=== PATIENT | male | born 1955 | race Caucasian/White ===

== ENCOUNTER → 2021-11-11 | Outpatient (CLI) | payer OTHER ==
--- NOTE | 2021-11-11 16:24 | CTL ---
EXAMINATION TYPE: CT Low Dose Lung DATE OF EXAM ORDERED: 11/11/2021 HISTORY: Personal tobacco use. Lung cancer screening CT DLP: 52.[address] CTDI: 1.3 mGy Automated exposure control for dose reduction was used. SCREENING VISIT: Initial COMPARISON: None TECHNIQUE: Low dose computed tomography scan was performed through the chest at 1 mm thick sections a nd reconstructed images in the coronal plane at [address] DIAGNOSTIC QUALITY: Satisfactory FINDINGS: LUNG NODULES: Present, detailed below: 1. There is a pleural-based 1.0 cm nodule in the lateral right costophrenic angle. Series 4 image 342 . 2. There is a 0.7 cm nodule within the periphery of the left lower lung field. Series 4 image 291. 3. There is a faint 0.5 cm nodule in the anterior left lung base, series 4 image 287. 4. There is a 0.7 cm peripheral nodule in the right mid lung. Series 4 image 217. Punctate nodular de nsities in the posterior medial right lung at the same level. 5. There is a left mid lung peripheral nodule measuring 0.8 cm. Series 4 image 217. 6. There is a 0.9 cm nodule within the anterior right mid lung. Series 4 image 207. 7. There is a 0.3 cm nodule posterior right lung. Series 4 image 190. 8. There is ar 0.4 cm nodule in the periphery of the right lateral lung. Series 4 image 24. LUNGS: COPD: Severity: Severe Fibrosis: Severity: Moderate Lymph nodes: No enlarged Other findings: None RIGHT PLEURAL SPACE: Effusion: None Calcification: None Thickening: None Pneumothorax: None LEFT PLEURAL SPACE: Effusion: None Calcification: None Thickening: None Pneumothorax: None HEART: Heart Size: Normal Coronary calcification: None Pericardial effusion: None OTHER FINDINGS: Upper abdomen: PEG tube is present. Bony thorax: Normal Supraclavicular region: Normal Other: Ascending thoracic aorta at the level the main pulmonary artery measures 3.3 cm. The main pul monary artery at the bifurcation measures 2.8 cm. IMPRESSION: 1. Multiple bilateral lung nodules. Additional workup with PET CT is recommended. Primary metastatic disease are not excluded at this time. 2. Advanced COPD. 3. Pulmonary fibrosis at the lung bases FOLLOW UP CT CHEST RECOMMENDATION: Follow-up with PET/CT CT LUNG RAD: Lung-Rad 4B Suspicious
== END | disposition home or self-care (01) ==
LOC: RADCTMAIN 12:40
PROVIDERS: ATTEND Family Medicine
DX: Z12.2 Encounter for screening for malignant neoplasm of respiratory organs (principal); R91.8 Other nonspecific abnormal finding of lung field; Z87.891 Personal history of nicotine dependence
CPT/HCPCS: 71271

== ENCOUNTER → 2021-12-04 | Outpatient (CLI) | payer OTHER ==
--- NOTE | 2021-12-06 23:23 | PE ---
EXAMINATION TYPE: PET CT fusion skull to thigh DATE OF EXAM: 12/04/2021 CLINICAL INDICATION:Male, 66 years old with history of R91.1 SOLITARY PULMONARY NODULE; TECHNIQUE: Following the intravenous administration of 11.8 mCi of F-18 FDG, whole body images are performed from the skull base to the midthigh. Images are reviewed on the computer in the coronal, a xial, and sagittal planes. Reconstructed rotating images are created on independent workstation and reviewed on the computer. A non-contrast CT is performed in conjunction with the PET scan. Glucose level 100 mg/dL COMPARISON: CT 11/11/2021. PET/CT None, FINDINGS: Mediastinal SUV mean is 1.3. Hepatic parenchyma SUV mean is 2.3. SKULL BASE AND NECK: Mild asymmetric uptake in the left base of the tongue/oropharynx max SUV 2.6 and its tip of the tongue max SUV 5.4. CHEST, MEDIASTINUM, AND HILAR REGION: No suspicious FDG activity. Pulmonary nodules without increased FDG activity at this time. All the nodules demonstrate FDG activity below background levels. Some of the nodules are subcentimeter and may be below the sensitivity of PET/CT. ABDOMEN AND PELVIS: No suspicious FDG activity. OSSEOUS STRUCTURES: No suspicious FDG activity. Facet joint arthropathy changes with FDG activity in the facet joints of the cervical spine bilaterally OTHER CT: Atherosclerosis of the arterial vasculature including the carotid bifurcations and coronary arteries is present. PEG tube is in appropriate position bladder is distended. The gallbladder surgi bárbara absent. IMPRESSION: 1. Scattered pulmonary nodules of which the largest do not demonstrate increased FDG activity above back on levels. Smaller subcentimeter nodules are below the sensitivity for PET/CT. Consider follow-u p CT chest in 3-6 months for stability 2. Mild asymmetric FDG activity within the left base of the tongue/oropharynx and the tip of the ton noah. Consider direct visualization.
== END | disposition home or self-care (01) ==
LOC: RADPETMAIN 12:14
DX: R91.8 Other nonspecific abnormal finding of lung field (principal); K14.8 Other diseases of tongue
CPT/HCPCS: 78815; A9552

== ENCOUNTER 2022-03-25 12:37 | Emergency (ER) | payer OTHER ==
[2022-03-25 14:20] VITALS: RESP 18
--- NOTE | 2022-03-25 14:45 | ED ---
General Adult HPI <Richard Johnson - Last Filed: 03/25/22 14:56> - General Source: patient, RN notes reviewed Mode of arrival: ambulatory Limitations: no limitations <Marco Smallwood - Last Filed: 03/25/22 15:20> - General Chief complaint: Recheck/Abnormal Lab/Rx Stated complaint: feeding tube replacement Time Seen by Provider: 03/25/22 13:21 - History of Present Illness Initial comments: 66 show male presents emergency Department chief complaint of PEG tube falling out. Patient states it fell out pressure 4-5 hours ago. Patient states that he uses it for feedings. Patient denies any pain he states she's unsure how it fell out. Patient upper saw complaints. (Marco Smallwood) - Related Data Allergies Allergy/AdvReac Type Severity Reaction Status Date / Time No Known Allergies Allergy Verified 03/25/22 12:44 Review of Systems ROS Other: All systems not noted in ROS Statement are negative. <Richard Johnson - Last Filed: 03/25/22 14:56> ROS Other: All systems not noted in ROS Statement are negative. <Marco Smallwood - Last Filed: 03/25/22 15:20> ROS Statement: Those systems with pertinent positive or pertinent negative responses have been documented in the HPI. Past Medical History Additional Past Medical History / Comment(s): aortic aneurysm, chest pain, coper hand d,constipation, dysphagia, gastrostomy malfunction , high lipds, epilepsy, Pulmonary fibrosis. History of Any Multi-Drug Resistant Organisms: None Reported Additional Past Surgical History / Comment(s): placement of peg tube. Past Psychological History: Depression Smoking Status: Never smoker Past Alcohol Use History: None Reported Past Drug Use History: None Reported <Marco Smallwood - Last Filed: 03/25/22 15:20> General Exam Limitations: no limitations General appearance: alert, in no apparent distress Head exam: Present: atraumatic, normocephalic, normal inspection Respiratory exam: Present: normal lung sounds bilaterally. Absent: respiratory distress, wheezes, rales, rhonchi, stridor Cardiovascular Exam: Present: regular rate, normal rhythm, normal heart sounds. Absent: systolic murmur, diastolic murmur, rubs, gallop, clicks GI/Abdominal exam: Present: soft, normal bowel sounds. Absent: distended, tenderness, guarding, rebound, rigid <Marco Smallwood - Last Filed: 03/25/22 15:20> Course Vital Signs 03/25/22 03/25/22 12:39 14:16 Temperature 96.9 F L Pulse Rate 78 70 Respiratory 20 18 Rate Blood Pressure 111/73 O2 Sat by Pulse 97 96 Oximetry Procedures - Feeding Tube Replacement Reason for Replacement: fell out Initial Tube Inserted: greater than 2 weeks (Proximally 4 hours prior to arrival) Type of Tube: gastrostomy Use of Tube: medications and feeding Insertion Site Prior to Procedure: clean Tube Used for Reinsertion: other (16-Algerian PEG tube) Anesthesia Used: Lidocaine 1% (Local field block) Amount of Anesthesia Used (mls): 4 Used for Assist in Placement: hemostat Verification of Placement: auscultation, KUB Tube Secured by: G-tube attachment device Patient Tolerated Procedure: well <Richard Johnson - Last Filed: 03/25/22 14:56> - Feeding Tube Replacement Tube Used for Reinsertion: other <Marco Smallwood - Last Filed: 03/25/22 15:20> Medical Decision Making <Marco Smallwood - Last Filed: 03/25/22 15:20> - Medical Decision Making Was pt. sent in by a medical professional or institution ([facility], [employer], urgent care, hospital, or fpc...) When possible be specific @ -No Did you speak to anyone other than the patient for history (EMS, parent, family, police, friend...)? What history was obtained from this source @ -No Did you review nursing and triage notes (agree or disagree)? Why? @ -I reviewed and agree with nursing and triage notes Were old charts reviewed (outside hosp., previous admission, EMS record, old EKG, old radiological studies, urgent care reports/EKG's, fpc records)? Report findings @ -No old charts were reviewed Differential Diagnosis (chest pain, altered mental status, abdominal pain women, abdominal pain men, vaginal bleeding, weakness, fever, dyspnea, syncope, headache, dizziness, GI bleed, back pain, seizure, CVA, palpatations, mental health)? @ -PEG tube complication EKG interpreted by me (3pts min.). @ -None X-rays interpreted by me (1pt min.). @ -xr KUB with dye shows appropriate placement CT interpreted by me (1pt min.). @ -None done U/S interpreted by me (1pt. min.). @ -None done What testing was considered but not performed or refused? (CT, X-rays, U/S, labs)? Why? @ -None What meds were considered but not given or refused? Why? @ -None Did you discuss the management of the patient with other professionals (professionals i.e. DrBubba, PA, [employer], lab, RT, psych nurse, social work specialist, bakery assistant, teacher, police commanding officer, case filler)? Give summary @ -No Was smoking cessation discussed for >3mins.? @ -No Was critical care preformed (if so, how long)? @ -No Were there social determinants of health that impacted care today? How? (Homelessness, low income, unemployed, alcoholism, drug addiction, transportation, low edu. Level, literacy, decrease access to med. care, prison, rehab)? @ -No Was there de-escalation of care discussed even if they declined (Discuss DNR or withdrawal of care, Hospice)? DNR status @ -No What co-morbidities impacted this encounter? (DM, HTN, Smoking, COPD, CAD, Cancer, CVA, ARF, Chemo, Hep., AIDS, mental health diagnosis, sleep apnea, morbid obesity)? @ -None Was patient admitted / discharged? Hospital course, mention meds given and route, prescriptions, significant lab abnormalities, going to OR and other pertinent info. @ -hospital course Undiagnosed new problem with uncertain prognosis? @ -No Drug Therapy requiring intensive monitoring for toxicity (Heparin, Nitro, Insulin, Cardizem)? @ -No Were any procedures done? @ -yes see procedural note Diagnosis/symptom? @ -PEG tube complication Acute, or Chronic, or Acute on Chronic? @ -Acute Uncomplicated (without systemic symptoms) or Complicated (systemic symptoms)? @ -Uncomplicated Side effects of treatment? @ -No Exacerbation, Progression, or Severe Exacerbation? @ -No Poses a threat to life or bodily function? How? (Chest pain, USA, MD, pneumonia, PE, COPD, DKA, ARF, appy, cholecystitis, CVA, Diverticulitis, Homicidal, Suicidal, threat to staff... and all critical care pts) @ -No (Marco Smallwood) Disposition <Richard Johnson - Last Filed: 03/25/22 14:56> Is patient prescribed a controlled substance at d/c from ED?: No Time of Disposition: 15:01 <Marco Smallwood - Last Filed: 03/25/22 15:20> Clinical Impression: PEG tube malfunction Disposition: HOME SELF-CARE Condition: Stable Instructions (If sedation given, give patient instructions): How to Use and Care for Your PEG Tube (ED), PEG Tube Insertion (DC) Additional Instructions: Please return to the Emergency Department if symptoms worsen or any other concerns. Referrals: Nonstaff,Physician [Primary Care Provider] - 1-2 days
--- NOTE | 2022-03-25 15:17 | XR ---
EXAMINATION TYPE: XR KUB DATE OF EXAM: 03/25/2022 Comparison: PET/CT 12/04/2021 Clinical History: 66-year-old male PEG tube placement Findings: Injection through the patient's PEG tube, 2 ounces of Isovue-370 was administered by the radiology te chnologist. There is satisfactory intraluminal opacification of the stomach. Nonobstructive bowel gas pattern. Cholecystectomy clips. Impression: Satisfactory injection and positioning of the PEG tube.
[2022-03-25 15:25] VITALS: BP 105/64; PULSE 76; TEMP 98
== END 2022-03-25 15:25 | disposition home or self-care (01) ==
LOC: EC 12:37
DX: K94.23 Gastrostomy malfunction (principal)
CPT/HCPCS: 74018; 43762; 99283; Q9967

== ENCOUNTER → 2022-04-14 | Outpatient (CLI) | payer OTHER ==
--- NOTE | 2022-04-14 10:32 | US ---
EXAMINATION TYPE: US duplex aorta DATE OF EXAM: 04/14/2022 COMPARISON: NONE CLINICAL HISTORY: I71.4 Abdominal aortic aneurysm, without rupture. Patient has feeding tube TECHNIQUE: Multiple sonographic images of the abdominal aorta are obtained. FINDINGS: EXAM MEASUREMENTS: Abdominal Aorta: Proximal: 2.2 x 1.9 cm Mid: 1.5 x 2.0 cm Distal: 1.4 x 1.6 cm Bifurcation: Right- 0.9 x 1.1 cm Left- 0.9 x 1.0 cm BREAKDOWN PERSON NOTES: No AAA visualized at time of scan, atherosclerotic changes seen IMPRESSION: No AAA visualized
== END | disposition home or self-care (01) ==
LOC: RADUSWWP 09:50
PROVIDERS: ATTEND Family Medicine
DX: I71.40 Abdominal aortic aneurysm, without rupture, unspecified (principal)
CPT/HCPCS: 93979

== ENCOUNTER 2022-11-16 10:55 | Day surgery (SDC) | payer OTHER ==
[~2022-11-16 10:55] MED LIST: LACTATED RINGERS 1,000 ML IV SCH; LIDOCAINE 1% (10MG/ML) FOR IV START INTRADERMA PRN
[2022-11-16 11:31] VITALS: TEMP 97.1
[2022-11-16 11:50] LABS: Glucose,Whole Blood 91 mg/dL (70-110)
[2022-11-16] MEDS ORDERED: PROPOFOL 10 MG/ML 20 ML VIAL IV ONE (12:19)
[2022-11-16] MEDS ORDERED: LIDOCAINE 2% INJ 20 MG/ML (2 ML VIAL) ONE (12:19)
--- NOTE | 2022-11-16 12:37 | P.PCN ---
Date of Procedure: 11/16/22 Procedure(s) Performed: BRIEF HISTORY: Patient is a 67-year-old, pleasant, white male scheduled for an upper endoscopy as a part of evaluation of epigastric pain and progressive weight loss for the last 2 years duration. He underwent an EGD with PEG tube placement in 2019.. PROCEDURE PERFORMED: Esophagogastroduodenoscopy with PEG tube replacement. PREOPERATIVE DIAGNOSIS: Epigastric pain and progressive weight loss. IV sedation per anesthesia. PROCEDURE: After informed consent was obtained, the patient was brought into the endoscopy unit. IV sedation was administered by Anesthesia under continuous monitoring. Initially the Olympus GIF-140 video endoscope was inserted into the mouth. Esophagus intubated without any difficulty. It was gradually advanced into the stomach and duodenum and carefully examined. The bulb and the second part of the duodenum appeared normal. The scope at this time was withdrawn to the stomach, adequately insufflated with air, and upon careful examination, mucosa of the antrum, body, cardia and the fundus appeared normal. The balloon from the previously placed PEG tube appears to have broken as the balloon was deflated. The scope was then withdrawn into the esophagus. The GE junction was located at 39 cm from the incisors. The esophagus appeared normal. There were no erosions or ulcerations seen . At this time because of PEG tube malfunction, I decided to replace the G-tube. The previously placed PEG tube was removed from the anterior abdominal wall without any difficulty. A guidewire was passed through the anterior abdominal wall which was held by the snare that was passed through the scope. The scope and the snare was gradually withdrawn. Very Yoruba PEG tube was passed over the guidewire and gently advanced into the mouth into the esophagus and stomach and pulled from anterior abdominal wall until the internal bumper was not too gastric wall. External bumper was placed a 2 cm natali. Repeat EGD was performed. Internal bumper appeared to be in good position. Patient tolerated the procedure well. IMPRESSION: 1. Successful be placed band of PEG tube as described above 2. Mild gastritis. RECOMMENDATIONS: The findings of this examination were discussed with the patient as well as his family... He was advised to increase the Jevity to 4 cans daily.
[2022-11-16 13:04] VITALS: PULSE 73; RESP 20
[2022-11-16 13:05] VITALS: BP 120/60
== END 2022-11-16 13:20 ==
LOC: ORWHC2ENDO 10:55
PROVIDERS: ATTEND Internal Medicine Gastroenterology
DX: R19.8 Other specified symptoms and signs involving the digestive system and abdomen (principal); J44.9 Chronic obstructive pulmonary disease, unspecified; Z79.811 Long term (current) use of aromatase inhibitors; Z79.899 Other long term (current) drug therapy
CPT/HCPCS: 43246; J2704; J2001; B4087

== ENCOUNTER → 2022-12-23 | Outpatient (CLI) | payer OTHER ==
--- NOTE | 2022-12-23 14:55 | CTL ---
EXAMINATION TYPE: CT Low Dose Lung DATE OF EXAM ORDERED: 12/23/2022 HISTORY: . Lung cancer screening CT DLP: 54.[address] CTDI: 1.2 mGy Automated exposure control for dose reduction was used. SCREENING VISIT: COMPARISON: 11/11/2021 TECHNIQUE: Low dose computed tomography scan was performed through the chest at 1 mm thick sections a nd reconstructed images in multiple planes at 1 mm and [address] DIAGNOSTIC QUALITY: Satisfactory FINDINGS: LUNG NODULES: Present, detailed below: 1. There is a pleural-based 1.0 cm nodule in the lateral right costophrenic angle. Series 4 image 342. 2. There is a 0.7 cm nodule within the periphery of the left lower lung field. Series 4 image 291. 3. There is a faint 0.5 cm nodule in the anterior left lung ba se, series 4 image 287. 4. There is a 0.7 cm peripheral nodule in the right mid lung. Series 4 image 217. Punctate nodular densities in the posterior medial right lung at the same level. 5. There is a l eft mid lung peripheral nodule measuring 0.8 cm. Series 4 image 217. 6. There is a 0.9 cm nodule with in the anterior right mid lung. Series 4 image 207. 7. There is a 0.3 cm nodule posterior right lung. Series 4 image 190. 8. There is ar 0.4 cm nodule in the periphery of the right lateral lung. Series 4 image 24. There is biapical pleural scarring. Diffuse advanced emphysematous changes. No diagnostic evidence of focal pneumonia. Multiple pulmonary nodules are again noted. There is a nodule measuring 8 mm in the right upper lobe anterior segment stable. Within the left lower lobe the largest nodule measures 1.2 cm increased in size from prior exam Multiple additional subpleural nodules are similar to the prior exam. Additional 9 mm nodule at the l eft lung base is retrospectively stable. Subpleural nodule measuring 1 cm right lower lobe near the costophrenic angle stable. Multiple additional sub-5 mm nodules least a couple of which appear to be calcified stable prior exam . There is honeycombing advanced pulmonary fibrosis at the lung bases. Heart size is normal. Trace of pericardial fluid. There is coronary artery calcification. Atheroscler otic changes of the aorta but no evidence of aneurysm. There is evidence of a PEG tube and previous cholecystectomy. Hypertrophic and degenerative changes o f the spine. There is no changes of bronchiectasis centrally and at the lung bases with the mucous plugging in the left lower lobe. Within the trachea and left main pulmonary artery there is a thin area of abnormal attenuation likely related to retained secretions.. IMPRESSION: 1. Advanced emphysematous changes with honeycombing at the lung bases. 2. There are numerous bilateral pulmonary nodules all appear to be stable except for a left lower lob e nodule now measuring 1.2 x 1.1 cm and previously measuring 1.1 x 0.7 cm. Recommend repeat PET scan. 3. Coronary artery calcifications. CT LUNG RAD AND CT CHEST RECOMMENDATION: Lung-Rad 4A Suspicious: Follow-up 3 month LDCT or PET/CT may be used when there is a > 8 mm solid component. S Modifier (other clinically significant findings): S
== END | disposition home or self-care (01) ==
LOC: RADCTMAIN 12:40
PROVIDERS: ATTEND Emergency Medicine
DX: Z12.2 Encounter for screening for malignant neoplasm of respiratory organs (principal); F17.210 Nicotine dependence, cigarettes, uncomplicated; J43.9 Emphysema, unspecified; R91.8 Other nonspecific abnormal finding of lung field; I25.10 Atherosclerotic heart disease of native coronary artery without angina pectoris
CPT/HCPCS: 71271

== ENCOUNTER → 2023-02-01 | Outpatient (CLI) | payer OTHER ==
--- NOTE | 2023-02-01 14:55 | XR ---
EXAMINATION TYPE: XR chest 2V DATE OF EXAM: 02/01/2023 12:49 PM CLINICAL INDICATION:Male, 67 years old with history of R14.0; [facility] COMPARISON: Chest radiographs from 02/01/2023, 12/23/2022 CT. TECHNIQUE: XR chest 2V Frontal and lateral views of the chest. FINDINGS: Lungs/Pleura: Prominent interstitial lung markings are seen scattered throughout the lungs with mckenzie ening of the diaphragm and increased lucency of the lung apices. Increased fibrotic change with inter stitial markings in lung bases. No evidence of focal consolidation, pneumothorax or pleural effusion. Pulmonary vascularity: Unremarkable. Heart/mediastinum: Cardiomediastinal silhouette is unremarkable. Musculoskeletal: No acute osseous pathology. IMPRESSION: 1. No acute cardiopulmonary disease process. 2. Severe COPD changes and these are fibrotic change..
--- NOTE | 2023-02-01 14:57 | XR ---
EXAMINATION TYPE: XR abdomen 2V DATE OF EXAM: 02/01/2023 12:49 PM CLINICAL INDICATION:Male, 67 years old with history of R14.0; COMPARISON: None. TECHNIQUE: Two views of the abdomen were obtained. FINDINGS: PEG tube in similar position. The bowel gas pattern is nonspecific without dilated loops of small or large bowel. There is no evidence for organomegaly or pneumoperitoneum. The osseous struct ures are intact. No abnormal calcifications are present. Fecal material and gas are demonstrated thr oughout the colon and rectum. IMPRESSION: Nonspecific bowel gas pattern without radiographic evidence for acute process.
== END | disposition home or self-care (01) ==
LOC: RADXRMAIN 12:19
PROVIDERS: ATTEND Nurse Practitioner
DX: J44.9 Chronic obstructive pulmonary disease, unspecified (principal); R14.0 Abdominal distension (gaseous); Z93.1 Gastrostomy status
CPT/HCPCS: 71046; 74019

== ENCOUNTER 2023-04-02 18:57 | Emergency (ER) | payer OTHER ==
[2023-04-02] MEDS ORDERED: MAGNESIUM SULFATE-D5W PMX 1 GM in DEXTROSE/WATER 1 100ML.BAG IVPB STA (19:15)
[2023-04-02] MEDS ORDERED: IPRATROPIUM-ALBUTEROL 3 ML NEB INHALATION STA (19:15)
[2023-04-02] MEDS ORDERED: SODIUM CHLORIDE 0.9% 1,000 ML IV STA (19:15)
[2023-04-02] MEDS ORDERED: methylPREDNISolone SOD SUCCI 125 MG/2 ML VIAL IV STA (19:15)
[2023-04-02 20:20] LABS: Basophils # (A) 0.1 k/uL (0-0.2); Basophils % (A) 1 %; Eosinophils # (A) 0.2 k/uL (0-0.7); Eosinophils % (A) 2 %; HCT 35.5 % (39.0-53.0); Lymphocytes # (A) 1.2 k/uL (1.0-4.8); Lymphocytes % (A) 10 %; MCH 31.8 pg (25.0-35.0); MCHC 33.8 g/dL (31.0-37.0); MCV 94.1 fL (80.0-100.0); Mean Platelet Volume 7.8; Monocytes # (A) 0.6 k/uL (0-1.0); Monocytes % (A) 5 %; Neutrophils # (A) 9.7 k/uL (1.3-7.7); Neutrophils % (A) 81 %; Platelet Count 202 k/uL (150-450); RBC 3.78 m/uL (4.30-5.90); RDW 12.4 % (11.5-15.5); WBC 11.9 k/uL (3.8-10.6)
[2023-04-02 20:30] LABS: ALT 12 U/L (4-49); AST 20 U/L (17-59); African American GFR (CKD) >90 (>60 ml/min/1.73 sqM); Albumin 4.2 g/dL (3.5-5.0); Alkaline Phosphatase 158 U/L (38-126); Anion Gap 9 mmol/L; Blood Urea Nitrogen 18 mg/dL (9-20); Calcium 9.1 mg/dL (8.4-10.2); Carbon Dioxide 28 mmol/L (22-30); Chloride 99 mmol/L (98-107); Glucose 108 mg/dL (74-99); Non-African American GFR(CKD) >90 (>60 ml/min/1.73 sqM); Potassium 4.3 mmol/L (3.5-5.1); Sodium 136 mmol/L (137-145); Total Bilirubin 0.4 mg/dL (0.2-1.3); Total Protein 8.1 g/dL (6.3-8.2)
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
--- NOTE | 2023-04-02 20:53 | XR ---
EXAMINATION TYPE: XR chest 2V DATE OF EXAM: 04/02/2023 COMPARISON: 02/01/2023 HISTORY: Shortness of breath TECHNIQUE: Frontal and lateral views of the chest are obtained. FINDINGS: Scattered senescent parenchymal changes noted. Hyperinflation compatible with COPD. Patchy density left lower lobe may reflect developing infiltrate. No evidence for atelectasis. Heart size is stable. Mediastinal structures are stable and grossly unremarkable. No evidence for hilar prominence. Degenerative changes dorsal spine. IMPRESSION: 1. Patchy density left lower lobe may reflect developing infiltrate.
[2023-04-02] MEDS ORDERED: cefTRIAXone IN SWFI 1,000 MG/10 ML SYRINGE IVP STA (21:35)
[2023-04-02] MEDS ORDERED: KETOROLAC 15 MG/ML 1 ML VIAL IVP STA (21:37)
[2023-04-02 23:11] VITALS: BP 106/70; PULSE 72; RESP 16; TEMP 98.1
== END 2023-04-02 23:04 | disposition home or self-care (01) ==
LOC: EC 18:57
DX: J44.0 Chronic obstructive pulmonary disease with (acute) lower respiratory infection (principal); J18.9 Pneumonia, unspecified organism; I45.10 Unspecified right bundle-branch block; Z79.899 Other long term (current) drug therapy; Z86.59 Personal history of other mental and behavioral disorders; Z20.822 Contact with and (suspected) exposure to COVID-19
CPT/HCPCS: 36415; 94640; 93005; 80053; 84484; 85025; 87636; 71046; 99285; 96365; 96375 ×3; J2930; J0696; J3475; J1885

== ENCOUNTER 2023-05-21 03:26 | Emergency (ER) | payer OTHER ==
[2023-05-21 04:02] VITALS: RESP 18; TEMP 97.8
[2023-05-21] MEDS: SODIUM CHLORIDE 0.9% 500 ML 500 ML IV STA (04:13)
[2023-05-21 04:23] LABS: Basophils # (A) 0.1 k/uL (0-0.2); Basophils % (A) 1 %; Eosinophils # (A) 0.3 k/uL (0-0.7); Eosinophils % (A) 3 %; HCT 38.1 % (39.0-53.0); HGB 12.2 gm/dL (13.0-17.5); Lymphocytes # (A) 1.6 k/uL (1.0-4.8); Lymphocytes % (A) 17 %; MCH 30.2 pg (25.0-35.0); MCV 94.1 fL (80.0-100.0); Mean Platelet Volume 8.2; Monocytes # (A) 0.5 k/uL (0-1.0); Monocytes % (A) 6 %; Neutrophils # (A) 6.9 k/uL (1.3-7.7); Neutrophils % (A) 74 %; Platelet Count 251 k/uL (150-450); RBC 4.05 m/uL (4.30-5.90); RDW 12.8 % (11.5-15.5); WBC 9.4 k/uL (3.8-10.6)
[2023-05-21 04:25] LABS: Partial Thromboplastin Time 25.5 sec (22.0-30.0); Prothrombin Time 10.6 sec (10.0-12.5)
[2023-05-21 04:41] LABS: ALT 17 U/L (4-49); AST 29 U/L (17-59); African American GFR (CKD) >90 (>60 ml/min/1.73 sqM); Albumin 4.5 g/dL (3.5-5.0); Alkaline Phosphatase 202 U/L (38-126); Anion Gap 14 mmol/L; Blood Urea Nitrogen 21 mg/dL (9-20); Calcium 9.7 mg/dL (8.4-10.2); Carbon Dioxide 25 mmol/L (22-30); Chloride 100 mmol/L (98-107); Glucose 117 mg/dL (74-99); Non-African American GFR(CKD) 83 (>60 ml/min/1.73 sqM); Sodium 139 mmol/L (137-145); Total Bilirubin 0.4 mg/dL (0.2-1.3)
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
--- NOTE | 2023-05-21 05:48 | XR ---
EXAM: XR Chest, 2 Views CLINICAL HISTORY: ITS.REASON XR Reason: difficulty breathing hx aspiration TECHNIQUE: Frontal and lateral views of the chest. COMPARISON: 2 views of the chest April 02, 2023 IMPRESSION: 1. Posterior airspace disease noted within the lungs on lateral imaging which may relate to infection/aspiration changes. 2. Advanced COPD changes. 3. Cardiomegaly. 4. No other acute findings.
[2023-05-21 06:17] VITALS: BP 122/80; PULSE 64
== END 2023-05-21 05:52 | disposition home or self-care (01) ==
LOC: EC 03:26
DX: R06.2 Wheezing (principal); I45.10 Unspecified right bundle-branch block; J44.9 Chronic obstructive pulmonary disease, unspecified; G40.909 Epilepsy, unspecified, not intractable, without status epilepticus; F32.A Depression, unspecified; Z79.899 Other long term (current) drug therapy
CPT/HCPCS: 36415; 71046; 80053; 83605; 85025; 85610; 85730; 93005; 96360; 99285

== ENCOUNTER 2023-05-21 21:09 | Inpatient (IN) | payer OTHER ==
[2023-05-21] MEDS: IPRATROPIUM-ALBUTEROL 3 ML NEB INHALATION STA (21:47)
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
[2023-05-21] MEDS: ACETAMINOPHEN IV (For NPO) 1,000 MG in EMPTY BAG 1 BAG IVPB STA (22:13)
[2023-05-21 22:25] LABS: Basophils % (A) 1 %; Eosinophils # (A) 0.1 k/uL (0-0.7); Eosinophils % (A) 1 %; HCT 33.6 % (39.0-53.0); HGB 11.4 gm/dL (13.0-17.5); Lymphocytes # (A) 0.4 k/uL (1.0-4.8); Lymphocytes % (A) 4 %; MCH 31.7 pg (25.0-35.0); MCHC 33.8 g/dL (31.0-37.0); MCV 93.7 fL (80.0-100.0); Mean Platelet Volume 7.9; Monocytes # (A) 0.4 k/uL (0-1.0); Monocytes % (A) 4 %; Neutrophils # (A) 8.6 k/uL (1.3-7.7); Neutrophils % (A) 90 %; Platelet Count 241 k/uL (150-450); RBC 3.58 m/uL (4.30-5.90); RDW 12.6 % (11.5-15.5); WBC 9.6 k/uL (3.8-10.6)
[2023-05-21] MEDS: SODIUM CHLORIDE 0.9% 1,000 ML IV ONE (22:27)
[2023-05-21 22:53] LABS: ALT 16 U/L (4-49); AST 27 U/L (17-59); African American GFR (CKD) >90 (>60 ml/min/1.73 sqM); Albumin 3.9 g/dL (3.5-5.0); Alkaline Phosphatase 160 U/L (38-126); Anion Gap 11 mmol/L; Blood Urea Nitrogen 23 mg/dL (9-20); Calcium 8.9 mg/dL (8.4-10.2); Carbon Dioxide 26 mmol/L (22-30); Chloride 100 mmol/L (98-107); Glucose 114 mg/dL (74-99); Non-African American GFR(CKD) 89 (>60 ml/min/1.73 sqM); Potassium 4.1 mmol/L (3.5-5.1); Sodium 137 mmol/L (137-145); Total Bilirubin 0.4 mg/dL (0.2-1.3); Total Protein 7.8 g/dL (6.3-8.2)
[2023-05-21] MEDS: AZITHROMYCIN 500 MG in SODIUM CHLORIDE 0.9% 250 ML IVPB STA (23:09)
--- NOTE | 2023-05-21 23:38 | XR ---
EXAMINATION TYPE: XR chest 2V DATE OF EXAM: 05/21/2023 10:40 PM CLINICAL INDICATION:Male, 68 years old with history of shortness of breath; PHH COMPARISON: Chest x-ray earlier today 4:29 AM, and older exams TECHNIQUE: XR chest 2V. Frontal and lateral views of the chest.. FINDINGS: Lines/Tubes/Devices: No indwelling lines are seen. EKG leads overlie the chest. Heart/mediastinum: Heart size upper normal. Mediastinum appears normal. Pulmonary vascularity: Not increased, Lungs/Pleura: Lungs are hyperinflated. Diffuse increased reticular markings likely chronic interstiti al changes; COPD is a possibility. Slight interval worsening of interstitial and alveolar opacities i n the left mid to lower lung zones, superimposed on the chronic changes. No sizable pleural effusion or pneumothorax is demonstrated. Musculoskeletal: Osseous structures appear grossly unchanged. Osteopenia and mild/moderate degenerat samuel changes. Other findings: None. IMPRESSION: Slight interval worsening of opacity in the left mid to lower lung, likely pneumonia.
[2023-05-22] MEDS ORDERED: PNEUMONIA PROTOCOL UTILIZED 1 EACH MISC PO PRN (00:10)
[2023-05-22] MEDS: SODIUM CHLORIDE 0.9% 1,000 ML IV SCH (00:30)
[2023-05-22] MEDS: methylPREDNISolone SOD SUCCI 125 MG/2 ML VIAL IV SCH (00:34)
[2023-05-22] MEDS: SODIUM CHLORIDE 0.9% 1,000 ML IV ONE ×2 (03:07→07:46)
[2023-05-22] MEDS: SODIUM CHLORIDE 0.9% 500 ML 500 ML IV ONE (04:31)
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
[2023-05-22] MEDS ORDERED: IPRATROPIUM-ALBUTEROL 3 ML NEB INHALATION PRN (06:04)
[2023-05-22] MEDS: IPRATROPIUM-ALBUTEROL 3 ML NEB INHALATION SCH (08:11)
[2023-05-22 08:41] LABS: HCT 31.9 % (39.0-53.0); HGB 10.6 gm/dL (13.0-17.5); MCH 31.6 pg (25.0-35.0); MCHC 33.3 g/dL (31.0-37.0); Mean Platelet Volume 8.5; Platelet Count 205 k/uL (150-450); RBC 3.36 m/uL (4.30-5.90); RDW 12.7 % (11.5-15.5); WBC 10.7 k/uL (3.8-10.6)
[2023-05-22 08:59] LABS: Prothrombin Time 10.8 sec (10.0-12.5)
[2023-05-22 09:00] LABS: ALT 14 U/L (4-49); AST 29 U/L (17-59); African American GFR (CKD) >90 (>60 ml/min/1.73 sqM); Albumin 2.9 g/dL (3.5-5.0); Albumin/Globulin Ratio 0.9; Alkaline Phosphatase 137 U/L (38-126); Anion Gap 5 mmol/L; Blood Urea Nitrogen 17 mg/dL (9-20); Calcium 7.9 mg/dL (8.4-10.2); Carbon Dioxide 25 mmol/L (22-30); Chloride 110 mmol/L (98-107); Globulin 3.4 g/dL; Glucose 90 mg/dL (74-99); Magnesium 1.8 mg/dL (1.6-2.3); Non-African American GFR(CKD) >90 (>60 ml/min/1.73 sqM); Phenytoin (Dilantin) 8.6 ug/mL; Phosphorus 3.8 mg/dL (2.5-4.5); Potassium 4.6 mmol/L (3.5-5.1); Sodium 140 mmol/L (137-145); Total Bilirubin 0.3 mg/dL (0.2-1.3); Total Protein 6.3 g/dL (6.3-8.2)
[2023-05-22 09:02] LABS: Partial Thromboplastin Time 21.8 sec (22.0-30.0)
[2023-05-22] MEDS: PHENYTOIN SODIUM IVPB SCH (09:38)
[2023-05-22] MEDS: SODIUM CHLORIDE 0.9% IVPB SCH (09:38)
--- NOTE | 2023-05-22 09:59 | CT ---
EXAMINATION TYPE: CT abdomen pelvis wo con DATE OF EXAM: 05/22/2023 COMPARISON: PET/CT 12/04/[address] chest 12/23/2022 HISTORY: 68-year-old male Peg tube malfunction, concern for infection CT DLP: 317.1 mGycm. Automated exposure control for dose reduction was used. TECHNIQUE: Contiguous axial scanning of the abdomen and pelvis without IV contrast. Coronal and sagit lior reconstructions performed. FINDINGS: The heart is normal size without pericardial effusion. There is a trace left pleural effusion. Known 1.1 cm posterior left basilar pulmonary nodule. A 1.0 cm peripheral right basilar pulmonary nodule is also unchanged. 9 mm peripheral left basilar pulmonary nodule slightly larger from 6 mm, previously. Advanced emphysematous change. Guilherme airspace disease left lower lobe Exam limitations due to lack of contrast, paucity of intra-abdominal fat, and generalized anasarca ch rocío. Noncontrast appearance of the liver shows a stable 8 mm hypodensity left liver lobe, probable tiny cy st. Cholecystectomy clips. Mild fullness of bilateral renal collecting systems. Adrenal glands not well delineated due to above- mentioned limitations. Spleen and pancreas show no gross abnormality. The PEG tube balloon appears to be positioned satisfactorily within the gastric lumen. No dilated small bowel or free air. Generalized hazy mesenteric density relating to anasarca. Mild scattered stool. Trace pelvic free fluid. On the distention of the urinary bladder up to 10.9 cm. No pelvic lymphadeno chinyere seen. Bones: Mild degenerative change in both hips. Facet arthropathy lower lumbar spine. Osteopenia. IMPRESSION: 1. The PEG tube balloon appears to be appropriately located within the gastric lumen. 2. Overall exam limitations due to lack of contrast, paucity of intra-abdominal fat, and generalized anasarca change. 3. Advanced emphysema and airspace disease/pneumonia at the left base. Appropriate follow-up for the patient's pulmonary nodules (see report of 12/23/2022). A 6 mm left basilar pulmonary nodule appears larger now measuring 9 mm. 4. Fullness of the bilateral renal collecting systems and prominent distention of the bladder. Pleas e ensure that this represents voluntary retention.
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
[2023-05-22 11:44] LABS: Glucose,Whole Blood 76 mg/dL (70-110)
[2023-05-22] MEDS ORDERED: AZITHROMYCIN 500 MG TAB PO SCH (12:00)
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
[2023-05-22] MEDS: PIPERACILLIN-TAZOBACTAM 3.375 GM in SODIUM CHLORIDE 0.9% 100 ML IVPB SCH (16:14)
[2023-05-22 16:37] LABS: Glucose,Whole Blood 70 mg/dL (70-110)
[2023-05-22] MEDS: DEXTROSE 5%-0.45% NACL 1,000 ML IV SCH (17:44)
[2023-05-22 20:54] LABS: Glucose,Whole Blood 99 mg/dL (70-110)
[2023-05-23 06:27] LABS: Glucose,Whole Blood 100 mg/dL (70-110)
[2023-05-23 08:10] LABS: African American GFR (CKD) >90 (>60 ml/min/1.73 sqM); Anion Gap 5 mmol/L; Blood Urea Nitrogen 10 mg/dL (9-20); Carbon Dioxide 21 mmol/L (22-30); Chloride 111 mmol/L (98-107); Glucose 98 mg/dL (74-99); Magnesium 1.8 mg/dL (1.6-2.3); Non-African American GFR(CKD) >90 (>60 ml/min/1.73 sqM); Phosphorus 2.9 mg/dL (2.5-4.5); Sodium 137 mmol/L (137-145)
[2023-05-23 08:30] LABS: Potassium 4.4 mmol/L (3.5-5.1)
--- NOTE | 2023-05-23 08:57 | XR ---
EXAMINATION TYPE: XR chest 1V portable DATE OF EXAM: 05/23/2023 6:50 AM CLINICAL INDICATION:Male, 68 years old with history of pneumonia; [facility] COMPARISON: Chest radiographs from 05/21/2023 TECHNIQUE: XR chest 1V portable Frontal view of the chest. FINDINGS: Lungs/Pleura: Mildly improved similar diffuse emphysema with similar to mildly improved left basilar airspace opacities. Finding the diaphragms. There is no evidence of pleural effusion or pneumothorax. Pulmonary vascularity: Unremarkable. Heart/mediastinum: Cardiomediastinal silhouette is unremarkable. Musculoskeletal: No acute osseous pathology. IMPRESSION: Similar to mildly improved emphysema with superimposed left basilar airspace opacities.
[2023-05-23 09:05] LABS: HCT 32.6 % (39.0-53.0); HGB 10.7 gm/dL (13.0-17.5); MCH 31.4 pg (25.0-35.0); MCHC 32.9 g/dL (31.0-37.0); MCV 95.5 fL (80.0-100.0); Platelet Count 203 k/uL (150-450); RBC 3.41 m/uL (4.30-5.90); RDW 12.7 % (11.5-15.5); WBC 7.1 k/uL (3.8-10.6)
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
[2023-05-23 11:30] LABS: Glucose,Whole Blood 105 mg/dL (70-110)
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
[2023-05-23] MEDS ORDERED: PROPOFOL 10 MG/ML 20 ML VIAL IV ONE (14:18)
[2023-05-23] MEDS ORDERED: LIDOCAINE 1% INJ 10MG/ML (20 ML MDV) ONE (14:18)
[2023-05-23] MEDS: IV FLUID CONTINUATION 1,000 ML IV ONE (14:26)
[2023-05-23 14:40] VITALS: BMI 15.7
[2023-05-23 16:56] LABS: Glucose,Whole Blood 98 mg/dL (70-110)
[2023-05-23] MEDS: PHENYTOIN 50 MG CHEWABLE PEG/G-TUBE SCH (20:56)
[2023-05-23] MEDS: MIRTAZAPINE 45 MG TABLET PEG/G-TUBE SCH (20:56)
[2023-05-24] MEDS: MELATONIN 5 MG TABLET PO PRN (00:20)
[2023-05-24 00:59] LABS: Glucose,Whole Blood 126 mg/dL (70-110)
[2023-05-24 06:28] LABS: Glucose,Whole Blood 102 mg/dL (70-110)
[2023-05-24] MEDS: polyethylene glycoL 3350 17 GM POWD.PACK PEG/G-TUBE SCH (09:45)
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
[2023-05-24 11:40] LABS: Glucose,Whole Blood 81 mg/dL (70-110)
[2023-05-24 11:46] VITALS: PULSE 60
[2023-05-24 11:47] VITALS: BP 109/66; RESP 18; TEMP 97.7
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
--- NOTE | 2023-05-24 12:29 | P.PN ---
Subjective Progress Note Date: 05/24/23 CHIEF COMPLAINT: PEG tube malfunction HISTORY OF PRESENT ILLNESS: Patient is status post PEG tube replacement with Dr. Juarez. He is tolerating tube feeds. Patient requested that the tube feeds be turned off so that he could lay down flat. He denies any abdominal pain. He is scheduled for discharge today. Afebrile PHYSICAL EXAM: VITAL SIGNS: Reviewed. GENERAL: Well-developed in no acute distress. ABDOMEN: Soft. Nondistended. Nontender. PEG tube site clean dry and intact NEUROLOGIC: awake, alert ASSESSMENT: 1. PEG tube malfunction status post PEG tube replacement PLAN: -Continue tube feeds -Continue supportive care -Patient can be discharge from surgical standpoint Physician Product Safety Compliance Leader note has been reviewed by physician. Signing provider agrees with the documented findings, assessment, and plan of care. Objective - Vital Signs Vital signs: Vital Signs Temp 97.7 F 05/24/23 08:00 Pulse 64 05/24/23 11:13 Resp 18 05/24/23 08:00 BP 109/66 05/24/23 08:00 Pulse Ox 97 05/24/23 08:00 FiO2 Intake & Output 05/23/23 05/24/23 05/24/23 18:59 06:59 18:59 Intake Total 0 Output Total 665 1050 Balance -665 -1050 Weight 52.617 kg Intake: Oral 0 Output: Urine 450 1050 Post Void Residual 215 Other: Voiding Method Urinal Urinal Urinal # Voids 1 # Bowel Movements 0 - Labs CBC & Chem 7: 05/23/23 08:28 05/23/23 07:11 Labs: Abnormal Lab Results - Last 24 Hours (Table) 05/24/23 Range/Units 00:24 POC Glucose (mg/dL) 126 H (70-110) mg/dL Microbiology - Last 24 Hours (Table) 05/22/23 13:14 Gram Stain - Final Sputum Sputum Culture - Final 05/21/23 22:00 Blood Culture - Preliminary Blood 05/21/23 21:50 Blood Culture - Preliminary Blood
--- NOTE | 2023-05-24 16:39 | P.PCN ---
Date of Procedure: 05/23/23 Procedure(s) Performed: Preoperative Dx: PEG tube malfunction Postoperative Dx: Same Procedure: EGD with PEG tube replacement Anesthesia: Sedation Endoscopist: Dr. Juarez Specimens: None Endoscopic Procedure: The patient was on the endoscopy table in the left decubitus position. The Olympus gastroscope was inserted into the oropharynx and passed under direct visualization to the region of the third portion of the duodenum. From that point the scope was slowly withdrawn inspecting all surfaces carefully. There were no neoplastic inflammatory or polypoid lesions throughout the duodenum. The pylorus was widely patent. The stomach was carefully inspected. The patient's gastrostomy was present in the distal body anteriorly. The previous PEG tube was removed with anterior traction. It was fully intact. A new nonballoon replacement catheter was placed without difficulty. The bolster was tightened down. It was confirmed to be in the appropriate location endoscopically. The remainder of the stomach and esophagus appeared normal. The patient was then taken to the recovery room in stable condition per anesthesia guidelines. Recommendations: May utilize new catheter.
== END 2023-05-24 12:28 | disposition home or self-care (01) | DRG 871 ==
LOC: EC 21:09 → 4SSUR 05-22 00:11 → 3SCARD 05-22 09:01
PROVIDERS: ADMIT Internal Medicine; ATTEND Internal Medicine
PROC: 3E033XZ Introduction of Vasopressor into Peripheral Vein, Percutaneous Approach (ICD-10-PCS; 2023-05-22)
PROC: 0D20XUZ Change Feeding Device in Upper Intestinal Tract, External Approach (ICD-10-PCS; principal; 2023-05-24)
PROC: 3E0336Z Introduction of Nutritional Substance into Peripheral Vein, Percutaneous Approach (ICD-10-PCS; 2023-05-24)
DX: A41.9 Sepsis, unspecified organism (principal); E43 Unspecified severe protein-calorie malnutrition; J69.0 Pneumonitis due to inhalation of food and vomit; R65.21 Severe sepsis with septic shock; J96.01 Acute respiratory failure with hypoxia; Z68.1 Body mass index [BMI] 19.9 or less, adult; K94.23 Gastrostomy malfunction; J44.9 Chronic obstructive pulmonary disease, unspecified; J43.9 Emphysema, unspecified; R13.10 Dysphagia, unspecified; R53.1 Weakness; D64.9 Anemia, unspecified; G51.0 Bell's palsy; F32.A Depression, unspecified; G40.909 Epilepsy, unspecified, not intractable, without status epilepticus; I45.10 Unspecified right bundle-branch block; Z79.899 Other long term (current) drug therapy; E78.5 Hyperlipidemia, unspecified
CPT/HCPCS: 36415; 43246; 51798; 71045; 71046; 74176; 80048; 80053; 80185; 83605; 83735; 84100; 84484; 85025; 85027; 85610; 85730; 87040; 87070; 87205; 87449; 87636; 93005; 94640; 94760; 96361; 96365; 96366; 96367; 96375; 99285

== ENCOUNTER 2023-06-09 22:39 | Inpatient (IN) | payer OTHER ==
[2023-06-09 23:32] LABS: Basophils # (A) 0.1 k/uL (0-0.2); Basophils % (A) 1 %; Eosinophils # (A) 0.1 k/uL (0-0.7); Eosinophils % (A) 0 %; HCT 35.7 % (39.0-53.0); HGB 11.6 gm/dL (13.0-17.5); Lymphocytes # (A) 0.8 k/uL (1.0-4.8); Lymphocytes % (A) 7 %; MCH 30.4 pg (25.0-35.0); MCHC 32.4 g/dL (31.0-37.0); MCV 93.6 fL (80.0-100.0); Mean Platelet Volume 7.7; Monocytes # (A) 0.5 k/uL (0-1.0); Monocytes % (A) 4 %; Neutrophils # (A) 10.6 k/uL (1.3-7.7); Neutrophils % (A) 88 %; Platelet Count 330 k/uL (150-450); RBC 3.82 m/uL (4.30-5.90); RDW 12.8 % (11.5-15.5); WBC 12.1 k/uL (3.8-10.6)
[2023-06-09 23:37] LABS: ALT 20 U/L (4-49); AST 29 U/L (17-59); African American GFR (CKD) >90 (>60 ml/min/1.73 sqM); Alkaline Phosphatase 151 U/L (38-126); Anion Gap 10 mmol/L; Blood Urea Nitrogen 23 mg/dL (9-20); Carbon Dioxide 26 mmol/L (22-30); Chloride 98 mmol/L (98-107); Glucose 120 mg/dL (74-99); Non-African American GFR(CKD) 78 (>60 ml/min/1.73 sqM); Potassium 4.2 mmol/L (3.5-5.1); Sodium 134 mmol/L (137-145); Total Bilirubin 0.4 mg/dL (0.2-1.3); Total Protein 8.3 g/dL (6.3-8.2)
[2023-06-09 23:46] LABS: NT-Pro-B-Type Natriuretic Pept 425 pg/mL
[2023-06-09] MEDS: SODIUM CHLORIDE 0.9% 1,000 ML IV STA ×2 (23:57→23:58)
[2023-06-10 00:58] LABS: Partial Thromboplastin Time 27.2 sec (22.0-30.0); Prothrombin Time 10.8 sec (10.0-12.5)
[2023-06-10] MEDS ORDERED: PNEUMONIA PROTOCOL UTILIZED 1 EACH MISC PO PRN (01:01)
[2023-06-10] MEDS ORDERED: IPRATROPIUM-ALBUTEROL 3 ML NEB INHALATION PRN (01:01)
[2023-06-10] MEDS: PIPERACILLIN-TAZOBACTAM 3.375 GM in SODIUM CHLORIDE 0.9% 100 ML IVPB SCH (01:32)
--- NOTE | 2023-06-10 01:40 | XR ---
EXAM: XR Chest, 2 Views CLINICAL HISTORY: ITS.REASON XR Reason: difficulty breathing TECHNIQUE: Frontal and lateral views of the chest. COMPARISON: No relevant prior studies available. FINDINGS: Lungs: Left lower lobe consolidation, consistent with lobar pneumonia. Pleural space: Unremarkable. No pneumothorax. Heart: Cardiomegaly. Mediastinum: Unremarkable. Normal mediastinal contour. Bones/joints: Unremarkable. No acute fracture. IMPRESSION: Left lower lobe consolidation, consistent with lobar pneumonia.
--- NOTE | 2023-06-10 02:32 | CT ---
EXAM: CT Angiography Chest With Intravenous Contrast CLINICAL HISTORY: ITS.REASON CT Reason: sob, hypoxia TECHNIQUE: Axial computed tomographic angiography images of the chest with intravenous contrast. CTDI is 7.5 mGy and DLP is 421.6 mGy-cm. This CT exam was performed using one or more of the following dose reduction techniques: automated exposure control, adjustment of the mA and/or kV according to patient size, and/or use of iterative reconstruction technique. MIP reconstructed images were created and reviewed. COMPARISON: No relevant prior studies available. FINDINGS: Pulmonary arteries: Unremarkable. No pulmonary embolism. Aorta: No acute findings. No thoracic aortic aneurysm. Lungs: Severe centrilobular emphysema. Left lower lobe pneumonia. No mass. Pleural space: Unremarkable. No significant effusion. No pneumothorax. Heart: Cardiomegaly. No significant pericardial effusion. No evidence of RV dysfunction. Bones/joints: No acute fracture. No dislocation. Soft tissues: Unremarkable. Lymph nodes: Unremarkable. No enlarged lymph nodes. IMPRESSION: Severe centrilobular emphysema. Left lower lobe pneumonia.
--- NOTE | 2023-06-10 02:57 | CT ---
EXAM: CT Abdomen and Pelvis With Intravenous Contrast CLINICAL HISTORY: ITS.REASON CT Reason: PAIN TECHNIQUE: Axial computed tomography images of the abdomen and pelvis with intravenous contrast. CTDI is 7.4 mGy and DLP is 421.6 mGy-cm. This CT exam was performed using one or more of the following dose reduction techniques: automated exposure control, adjustment of the mA and/or kV according to patient size, and/or use of iterative reconstruction technique. COMPARISON: No relevant prior studies available. FINDINGS: Lung bases: Airspace consolidation in the left lower lobe, consistent with pneumonia. ABDOMEN: Liver: Unremarkable. No mass. Gallbladder and bile ducts: Unremarkable. No calcified stones. No ductal dilation. Pancreas: Unremarkable. No mass. No ductal dilation. Spleen: Unremarkable. No splenomegaly. Adrenals: Unremarkable. No mass. Kidneys and ureters: Unremarkable. No solid mass. No hydronephrosis. Stomach and bowel: Moderate fecal retention, correlate for constipation. No small bowel obstruction. No free air. No mucosal thickening. PELVIS: Appendix: No findings to suggest acute appendicitis. Bladder: Unremarkable. No mass. Reproductive: Unremarkable as visualized. ABDOMEN and PELVIS: Intraperitoneal space: See above. Bones/joints: Degenerative changes of the spine. No acute fracture. No dislocation. Soft tissues: Unremarkable. Vasculature: Atherosclerotic changes of the aorta. No abdominal aortic aneurysm. Lymph nodes: Unremarkable. No enlarged lymph nodes. Tubes, lines and devices: PEG tube terminates in the stomach. IMPRESSION: 1. Airspace consolidation in the left lower lobe, consistent with pneumonia. 2. Moderate fecal retention, correlate for constipation. No small bowel obstruction. No free air.
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
[2023-06-10] MEDS: IPRATROPIUM-ALBUTEROL 3 ML NEB INHALATION STA (04:06)
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
[2023-06-10] MEDS: ENOXAPARIN 40 MG/0.4 ML SYRINGE SQ SCH (09:26)
[2023-06-10] MEDS ORDERED: MAGNESIUM HYDROXIDE 2,400 MG/30 ML CUP PEG/G-TUBE PRN (12:28)
[2023-06-10] MEDS ORDERED: NA PHOS,M-B/NA PHOS,DI-BA 133 ML ENEMA RECTAL PRN (12:28)
[2023-06-10] MEDS ORDERED: NON FORMULARY DRUG (Albuterol Inhaler 90 MCG Puff) INHALATION PRN (12:28)
[2023-06-10] MEDS ORDERED: BENZOCAINE 20 % GEL 11.9 GM TUBE MM PRN (12:28)
[2023-06-10] MEDS ORDERED: HYOSCYAMINE ELIXIR 250 MCG/10 ML BTL PEG/G-TUBE PRN (12:28)
[2023-06-10] MEDS ORDERED: SENNA LEAF EXTRACT SYRUP 528 MG/15 ML CUP PEG/G-TUBE PRN (12:28)
[2023-06-10] MEDS ORDERED: bisacodyL 10 MG SUPP RECTAL PRN (12:28)
[2023-06-10] MEDS ORDERED: SIMETHICONE 40 MG/0.6 ML DROPS 2,000 MG/30 ML BOTTLE PO PRN (12:28)
[2023-06-10] MEDS: polyethylene glycoL 3350 17 GM POWD.PACK PEG/G-TUBE SCH (13:15)
[2023-06-10] MEDS: EZETIMIBE 10 MG TAB PEG/G-TUBE SCH (13:15)
[2023-06-10] MEDS: PHENYTOIN 50 MG CHEWABLE PEG/G-TUBE SCH (13:15)
[2023-06-10 16:29] VITALS: BMI 15.4
[2023-06-10] MEDS: MIRTAZAPINE 45 MG TABLET PEG/G-TUBE SCH (21:44)
[2023-06-10] MEDS: NON FORMULARY DRUG (Linaclotide [Linzess] 145 MCG Capsule) PEG/G-TUBE SCH (21:45)
[2023-06-11 02:42] VITALS: TEMP 98.1
[2023-06-11 07:45] LABS: Basophils % (A) 1 %; Eosinophils # (A) 0.2 k/uL (0-0.7); Eosinophils % (A) 3 %; HCT 33.6 % (39.0-53.0); HGB 10.7 gm/dL (13.0-17.5); Lymphocytes # (A) 1.2 k/uL (1.0-4.8); Lymphocytes % (A) 20 %; MCH 30.5 pg (25.0-35.0); MCV 95.2 fL (80.0-100.0); Mean Platelet Volume 7.7; Monocytes # (A) 0.3 k/uL (0-1.0); Monocytes % (A) 5 %; Neutrophils # (A) 4.3 k/uL (1.3-7.7); Neutrophils % (A) 70 %; Platelet Count 279 k/uL (150-450); RBC 3.53 m/uL (4.30-5.90); WBC 6.1 k/uL (3.8-10.6)
[2023-06-11 08:03] LABS: African American GFR (CKD) >90 (>60 ml/min/1.73 sqM); Anion Gap 5 mmol/L; Blood Urea Nitrogen 17 mg/dL (9-20); Calcium 8.8 mg/dL (8.4-10.2); Carbon Dioxide 25 mmol/L (22-30); Chloride 107 mmol/L (98-107); Glucose 81 mg/dL (74-99); Non-African American GFR(CKD) >90 (>60 ml/min/1.73 sqM); Potassium 4.1 mmol/L (3.5-5.1); Sodium 137 mmol/L (137-145)
[2023-06-11 08:27] VITALS: BP 111/64; PULSE 73; RESP 16
[2023-06-11] MEDS: AZITHROMYCIN 500 MG in SODIUM CHLORIDE 0.9% 250 ML IVPB SCH (11:01)
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
--- NOTE | 2023-06-11 14:01 | XR ---
EXAMINATION TYPE: XR chest 1V portable DATE OF EXAM: 06/11/2023 COMPARISON: 06/09/2023 INDICATION: Pneumonia TECHNIQUE: Single frontal view of the chest is obtained. FINDINGS: The heart size is normal. The pulmonary vasculature is normal. 7 this type changes are present. There is left lower lobe infiltrate. Correlate for pneumonia. Underl jesus nodule left mid lung may be present measuring 1.8 cm. This is not identified on the second image obtained at the same time. Follow-up is recommended IMPRESSION: 1. Diffuse left lower lobe infiltrate. Correlate for pneumonia. 2. Underlying nodule may be artifact or related to the pneumonia. Follow-up to clearing is recommende d.
== END 2023-06-11 14:19 | disposition home or self-care (01) | DRG 177 ==
LOC: EC 22:39 → 5NMEDONC 06-10 04:09 → 4SSUR 06-10 05:27
PROVIDERS: ADMIT Internal Medicine; ATTEND Internal Medicine
PROC: 3E0G76Z Introduction of Nutritional Substance into Upper GI, Via Natural or Artificial Opening (ICD-10-PCS; principal; 2023-06-10)
DX: J69.0 Pneumonitis due to inhalation of food and vomit (principal); E43 Unspecified severe protein-calorie malnutrition; J96.01 Acute respiratory failure with hypoxia; Z68.1 Body mass index [BMI] 19.9 or less, adult; J43.2 Centrilobular emphysema; R29.810 Facial weakness; I71.9 Aortic aneurysm of unspecified site, without rupture; J44.9 Chronic obstructive pulmonary disease, unspecified; R00.0 Tachycardia, unspecified; R13.10 Dysphagia, unspecified; S01.8 Open wound of other parts of head; W34.00XS Accidental discharge from unspecified firearms or gun, sequela; Z93.1 Gastrostomy status; Z28.310 Unvaccinated for COVID-19; Z79.899 Other long term (current) drug therapy; Z87.01 Personal history of pneumonia (recurrent); Z71.3 Dietary counseling and surveillance
CPT/HCPCS: 36415; 71045; 71046; 71275; 74177; 80048; 80053; 83605; 83880; 84484; 85025; 85379; 85610; 85730; 87040; 87070; 87205; 87449; 87636; 93005; 94640; 94760; 96361; 96365; 96366; 99285

== ENCOUNTER 2023-06-21 18:12 | Emergency (ER) | payer OTHER ==
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
[2023-06-21] MEDS: SODIUM CHLORIDE 0.9% 1,000 ML IV STA (19:03)
[2023-06-21] MEDS: SODIUM CHLORIDE 0.9% 500 ML 500 ML IV STA (19:03)
[2023-06-21] MEDS ORDERED: methylPREDNISolone SOD SUCCI 125 MG/2 ML VIAL IV STA (19:04)
[2023-06-21] MEDS: methylPREDNISolone SOD SUCCI 125 MG/2 ML VIAL IV STA (19:04)
[2023-06-21 19:10] LABS: Basophils # (A) 0.1 k/uL (0-0.2); Basophils % (A) 1 %; Eosinophils # (A) 0.1 k/uL (0-0.7); Eosinophils % (A) 2 %; HCT 34.4 % (39.0-53.0); HGB 11.2 gm/dL (13.0-17.5); Lymphocytes # (A) 1.6 k/uL (1.0-4.8); Lymphocytes % (A) 20 %; MCH 30.3 pg (25.0-35.0); MCHC 32.5 g/dL (31.0-37.0); MCV 93.2 fL (80.0-100.0); Mean Platelet Volume 8.2; Monocytes # (A) 0.4 k/uL (0-1.0); Monocytes % (A) 5 %; Neutrophils # (A) 5.8 k/uL (1.3-7.7); Neutrophils % (A) 72 %; Platelet Count 326 k/uL (150-450); RBC 3.69 m/uL (4.30-5.90); RDW 13.2 % (11.5-15.5)
[2023-06-21 19:20] LABS: INR 0.9 (<1.2); Partial Thromboplastin Time 24.5 sec (22.0-30.0); Prothrombin Time 10.4 sec (10.0-12.5)
[2023-06-21 19:32] LABS: ALT 20 U/L (4-49); AST 26 U/L (17-59); African American GFR (CKD) >90 (>60 ml/min/1.73 sqM); Albumin 4.1 g/dL (3.5-5.0); Alkaline Phosphatase 167 U/L (38-126); Anion Gap 10 mmol/L; Blood Urea Nitrogen 20 mg/dL (9-20); Calcium 9.5 mg/dL (8.4-10.2); Carbon Dioxide 25 mmol/L (22-30); Chloride 100 mmol/L (98-107); Glucose 110 mg/dL (74-99); Non-African American GFR(CKD) 90 (>60 ml/min/1.73 sqM); Potassium 4.5 mmol/L (3.5-5.1); Sodium 135 mmol/L (137-145); Total Bilirubin 0.2 mg/dL (0.2-1.3); Total Protein 8.1 g/dL (6.3-8.2)
[2023-06-21 19:40] LABS: NT-Pro-B-Type Natriuretic Pept 148 pg/mL
--- NOTE | 2023-06-21 19:55 | XR ---
EXAMINATION TYPE: XR chest 2V DATE OF EXAM: 06/21/2023 6:57 PM CLINICAL INDICATION:Male, 68 years old with history of difficulty breathing; [facility] COMPARISON: Chest radiographs from 06/11/2023. TECHNIQUE: XR chest 2V Frontal and lateral views of the chest. FINDINGS: Lungs/Pleura: Airspace opacities projecting over the left lower lung superimposed on emphysema. Promi nent interstitial lung markings are seen scattered throughout the lungs with flattening of the diaphr agm and increased lucency of the lung apices. No evidence of focal consolidation, pneumothorax or ple ural effusion. Pulmonary vascularity: Unremarkable. Heart/mediastinum: Cardiomediastinal silhouette is unremarkable. Musculoskeletal: No acute osseous pathology. IMPRESSION: COPD changes with suspected superimposed airspace disease in the left lower lung.
[2023-06-21 20:34] VITALS: BP 100/65; PULSE 71; RESP 22; TEMP 97.9
[2023-06-21] MEDS: AMPICILLIN-SULBACTAM 3 GM in SODIUM CHLORIDE 0.9% 100 ML IVPB STA (20:34)
[2023-06-21] MEDS: IPRATROPIUM-ALBUTEROL 3 ML NEB INHALATION STA (20:42)
== END 2023-06-21 22:18 | disposition home or self-care (01) ==
LOC: EC 18:12
DX: J18.9 Pneumonia, unspecified organism (principal); J44.1 Chronic obstructive pulmonary disease with (acute) exacerbation; F17.210 Nicotine dependence, cigarettes, uncomplicated
CPT/HCPCS: 99285 ×2; 96365 ×2; 96375 ×2; 96361 ×3; 99406 ×2; 36415; 94640; 93005; 83880; 80053; 83605; 84484; 85025; 85610; 85730; 87040; 87636; 71046; J0295; J2919

== ENCOUNTER 2023-07-30 18:22 | Emergency (ER) | payer OTHER ==
[2023-07-30] MEDS: SODIUM CHLORIDE 0.9% 500 ML 500 ML IV STA (19:03)
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
[2023-07-30 19:22] LABS: Basophils # (A) 0.1 k/uL (0-0.2); Basophils % (A) 1 %; Eosinophils # (A) 0.1 k/uL (0-0.7); Eosinophils % (A) 1 %; HCT 36.2 % (39.0-53.0); HGB 11.5 gm/dL (13.0-17.5); Lymphocytes # (A) 1.4 k/uL (1.0-4.8); Lymphocytes % (A) 14 %; MCHC 31.7 g/dL (31.0-37.0); MCV 91.5 fL (80.0-100.0); Mean Platelet Volume 8.1; Monocytes # (A) 0.6 k/uL (0-1.0); Monocytes % (A) 6 %; Neutrophils # (A) 7.9 k/uL (1.3-7.7); Neutrophils % (A) 78 %; Platelet Count 292 k/uL (150-450); RBC 3.95 m/uL (4.30-5.90); RDW 13.5 % (11.5-15.5); WBC 10.2 k/uL (3.8-10.6)
[2023-07-30 19:33] LABS: ALT 14 U/L (4-49); AST 25 U/L (17-59); African American GFR (CKD) >90 (>60 ml/min/1.73 sqM); Alkaline Phosphatase 155 U/L (38-126); Anion Gap 9 mmol/L; Blood Urea Nitrogen 23 mg/dL (9-20); Calcium 8.9 mg/dL (8.4-10.2); Carbon Dioxide 25 mmol/L (22-30); Chloride 102 mmol/L (98-107); Glucose 92 mg/dL (74-99); Non-African American GFR(CKD) >90 (>60 ml/min/1.73 sqM); Potassium 4.3 mmol/L (3.5-5.1); Sodium 136 mmol/L (137-145); Total Bilirubin 0.2 mg/dL (0.2-1.3); Total Protein 8.2 g/dL (6.3-8.2)
[2023-07-30] MEDS: IPRATROPIUM-ALBUTEROL 3 ML NEB INHALATION STA (19:41)
--- NOTE | 2023-07-30 20:15 | XR ---
EXAMINATION TYPE: XR chest 2V DATE OF EXAM: 07/30/2023 7:30 PM CLINICAL INDICATION:Male, 68 years old with history of difficulty breathing; COMPARISON: Chest radiographs from 06/21/2023. TECHNIQUE: XR chest 2V Frontal and lateral views of the chest. FINDINGS: Lungs/Pleura: Subtle pleural line may be present along the right inferior lateral aspect suggesting p neumothorax on the right. Prominent interstitial lung markings are seen scattered throughout the lung s. No evidence of focal consolidation, left pneumothorax or pleural effusion. Pulmonary vascularity: Unremarkable. Heart/mediastinum: Cardiomediastinal silhouette is enlarged and stable. Musculoskeletal: No acute osseous pathology. IMPRESSION: 1. A questionable Visceral pleural line along the right lateral chest wall suggestive of right-sided pneumothorax. 2. Interstitial lung disease changes not significantly changed from 06/21/2023. Correlate with serum B MERCURY PURIFIER for superimposed congestive heart failure. Findings communicated to JOSE Santiago on 07/30/2023 8:[address] Richard Fortune.
[2023-07-30 20:16] LABS: Partial Thromboplastin Time 26.3 sec (22.0-30.0); Prothrombin Time 10.8 sec (10.0-12.5)
[2023-07-30] MEDS: RX INFO: IV CONTRAST WAS GIVEN 1 EACH MISC MISCELLANE PRN (21:26)
[2023-07-30 21:27] VITALS: RESP 18
--- NOTE | 2023-07-30 22:03 | CT ---
EXAMINATION TYPE: CT chest wo con CT DLP: 210.5 mGycm, Automated exposure control for dose reduction was used. DATE OF EXAM: 07/30/2023 9:49 PM COMPARISON: CT dated back to 12/23/2022 CLINICAL INDICATION:Male, 68 years old with history of pneumothorax; PHH, r/o pneumothorax. prior cxr in [facility]. TECHNIQUE: Multiple axial images were obtained through the chest. Sagittal and coronal reformats were created for review. Contrast used: mL of (None if empty) Oral contrast used: (None if empty) FINDINGS: LUNGS/ PLEURA: There is a small right pneumothorax. Severe centrilobular emphysema changes. Left lowe r lung suspected airspace disease superimposed on emphysema. Stable pulmonary nodule in the right mid dle lobe along the left major fissure in the left lower lung near the costophrenic angle in the later al aspect of the right lower lobe near the fissure. AIRWAY: Retained secretions are seen in setting of large airways most pronounced in left lower lobe. HEART: Size within normal limits. MEDIASTINUM: Mediastinum is slightly shifted to the left. VASCULATURE: Atherosclerotic calcifications are present throughout the aorta and its branches. MUSCULOSKELETAL: Moderate disc degeneration changes are present throughout the thoracolumbar spine. SOFT TISSUES/LYMPH NODES: Unremarkable. LOWER NECK: No significant findings. UPPER ABDOMEN: PEG tube with tip in the gastric lumen. Gallbladder surgically absent. IMPRESSION: 1. Small right pneumothorax confirmed with mild deviation of the mediastinum leftward suggesting a c omponent of tension pneumothorax. 2. Severe emphysema. 3. Interstitial lung disease worse. 4. Left lower lung airspace disease superimposed on emphysema. Correlate for infection. 5. Stable scattered pulmonary nodules. 6. PEG tube in appropriate position.
[2023-07-30 23:07] VITALS: BP 120/70; PULSE 60
[2023-07-30 23:54] VITALS: TEMP 97.8
== END 2023-07-30 23:50 | disposition left against medical advice (07) ==
LOC: EC 18:22
DX: J93.9 Pneumothorax, unspecified (principal); F17.200 Nicotine dependence, unspecified, uncomplicated; J44.9 Chronic obstructive pulmonary disease, unspecified; Z53.29 Procedure and treatment not carried out because of patient's decision for other reasons
CPT/HCPCS: 36415; 71046; 71250; 80053; 83880; 84484; 85025; 85610; 85730; 94640; 96360; 99285

== ENCOUNTER 2023-07-31 04:44 | Inpatient (IN) | payer OTHER ==
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
[2023-07-31] MEDS: MORPHINE SULFATE 4 MG/ML SYRINGE IV STA (05:34)
--- NOTE | 2023-07-31 05:44 | XR ---
EXAMINATION TYPE: XR chest 1V portable DATE OF EXAM: 07/31/2023 COMPARISON: Chest CT one day earlier HISTORY: Pneumothorax TECHNIQUE: Single frontal view of the chest is obtained. FINDINGS: Background advanced chronic emphysematous change with small right lateral pneumothorax is redemonstrated. Persistent left greater than right bibasilar opacities cardiac silhouette size stable and within normal limits. The osseous structures are intact. IMPRESSION: Stable small right lateral pneumothorax. Background advanced chronic emphysematous wall e with left greater than right bilateral basilar opacities favoring scarring redemonstrated.
[2023-07-31] MEDS ORDERED: NALOXONE 0.4 MG/ML 1 ML VIAL IV PRN (06:12)
[2023-07-31] MEDS: SODIUM CHLORIDE 0.9% 1,000 ML IV SCH (06:44)
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
[2023-07-31] MEDS: MORPHINE SULFATE 4 MG/ML SYRINGE IV PRN (13:31)
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
--- NOTE | 2023-08-01 08:27 | XR ---
EXAMINATION TYPE: XR chest 1V portable DATE OF EXAM: 08/01/2023 6:21 AM CLINICAL INDICATION:Male, 68 years old with history of pneumothorax follow up; COMPARISON: Chest radiographs from 07/31/2023. TECHNIQUE: XR chest 1V portable Frontal view of the chest. FINDINGS: Lungs/Pleura: Trace right pneumothorax remains. No left pneumothorax. Prominent interstitial lung [place] are seen scattered throughout the lungs with flattening of the diaphragm and increased lucency of the lung apices. No evidence of focal consolidation or pleural effusion. Pulmonary vascularity: Unremarkable. Heart/mediastinum: Cardiomediastinal silhouette is unremarkable. Musculoskeletal: No acute osseous pathology. IMPRESSION: 1. Trace right pneumothorax. 2. Chronic COPD changes with interstitial lung changes. Superimposed left lower lung airspace diseas e not excluded.
[2023-08-01] MEDS: PHENYTOIN 50 MG CHEWABLE PEG/G-TUBE SCH (10:12)
[2023-08-01 10:14] LABS: Basophils % (A) 0 %; Eosinophils # (A) 0.1 k/uL (0-0.7); Eosinophils % (A) 1 %; HCT 43.4 % (39.0-53.0); HGB 13.4 gm/dL (13.0-17.5); Lymphocytes # (A) 1.1 k/uL (1.0-4.8); Lymphocytes % (A) 15 %; MCH 29.2 pg (25.0-35.0); MCHC 30.8 g/dL (31.0-37.0); MCV 94.8 fL (80.0-100.0); Mean Platelet Volume 8.2; Monocytes # (A) 0.4 k/uL (0-1.0); Monocytes % (A) 5 %; Neutrophils # (A) 5.9 k/uL (1.3-7.7); Neutrophils % (A) 77 %; Platelet Count 241 k/uL (150-450); RBC 4.58 m/uL (4.30-5.90); RDW 13.3 % (11.5-15.5); WBC 7.6 k/uL (3.8-10.6)
[2023-08-01 10:33] LABS: African American GFR (CKD) >90 (>60 ml/min/1.73 sqM); Anion Gap 12 mmol/L; Blood Urea Nitrogen 19 mg/dL (9-20); Calcium 8.7 mg/dL (8.4-10.2); Carbon Dioxide 23 mmol/L (22-30); Chloride 103 mmol/L (98-107); Glucose 59 mg/dL (74-99); Magnesium 1.9 mg/dL (1.6-2.3); Non-African American GFR(CKD) >90 (>60 ml/min/1.73 sqM); Potassium 4.9 mmol/L (3.5-5.1); Sodium 138 mmol/L (137-145)
[2023-08-01] MEDS: EZETIMIBE 10 MG TAB PEG/G-TUBE SCH (11:00)
[2023-08-01] MEDS: FAMOTIDINE 20 MG/2 ML VIAL IV SCH (11:10)
[2023-08-01] MEDS: HEPARIN SODIUM,PORCINE 5,000 UNIT/ML 1 ML VIAL SQ SCH (11:10)
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
[2023-08-01] MEDS: MIRTAZAPINE 45 MG TABLET PEG/G-TUBE SCH (21:17)
[2023-08-01 22:29] LABS: Glucose,Whole Blood 85 mg/dL (70-110)
[2023-08-02 06:04] LABS: Glucose,Whole Blood 115 mg/dL (70-110)
--- NOTE | 2023-08-02 08:40 | XR ---
EXAMINATION TYPE: XR chest 1V portable DATE OF EXAM: 08/02/2023 7:34 AM CLINICAL INDICATION:Male, 68 years old with history of pneumothorax; [facility] COMPARISON: Chest radiograph from one day prior. TECHNIQUE: XR chest 1V portable Frontal view of the chest. FINDINGS: Lungs/Pleura: Persistent trace right pneumothorax thought to be present. Prominent interstitial lung markings are seen scattered throughout the lungs with flattening of the diaphragm and increased [place] of the lung apices. There is increased airspace opacities superimposed on COPD in the left lung ba se which is similar to prior. Pulmonary vascularity: Unremarkable. Heart/mediastinum: Cardiomediastinal silhouette is unremarkable. Musculoskeletal: No acute osseous pathology. IMPRESSION: 1. Persistent trace right pneumothorax no longer visualized. 2. Chronic interstitial changes with possible left basilar airspace disease. 3. COPD changes.
[2023-08-02 09:44] VITALS: BP 131/55; PULSE 71; RESP 18; TEMP 97.6
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
== END 2023-08-02 11:49 | disposition home or self-care (01) | DRG 199 ==
LOC: EC 04:44 → 3SCARD 06:12
PROVIDERS: ADMIT Student in an Organized Health Care Education/Training Program; ATTEND Student in an Organized Health Care Education/Training Program
PROC: 3E0G76Z Introduction of Nutritional Substance into Upper GI, Via Natural or Artificial Opening (ICD-10-PCS; principal; 2023-07-31)
DX: J93.83 Other pneumothorax (principal); E43 Unspecified severe protein-calorie malnutrition; J96.01 Acute respiratory failure with hypoxia; Z68.1 Body mass index [BMI] 19.9 or less, adult; J43.9 Emphysema, unspecified; R13.10 Dysphagia, unspecified; E78.5 Hyperlipidemia, unspecified; F32.A Depression, unspecified; G40.909 Epilepsy, unspecified, not intractable, without status epilepticus; J84.10 Pulmonary fibrosis, unspecified; F17.210 Nicotine dependence, cigarettes, uncomplicated; R29.810 Facial weakness; S01.8 Open wound of other parts of head; Z93.1 Gastrostomy status; Z87.01 Personal history of pneumonia (recurrent); Z91.199 Patient's noncompliance with other medical treatment and regimen due to unspecified reason
CPT/HCPCS: 71045; 80048; 83735; 84145; 85025; 96374; 96376; 99285

== ENCOUNTER 2023-08-29 12:21 | Observation (INO) | payer OTHER ==
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
[2023-08-29] MEDS: methylPREDNISolone SOD SUCCI 125 MG/2 ML VIAL IV STA (13:14)
[2023-08-29 13:21] LABS: Basophils % (A) 0 %; Eosinophils # (A) 0.1 k/uL (0-0.7); Eosinophils % (A) 1 %; HCT 38.9 % (39.0-53.0); HGB 12.5 gm/dL (13.0-17.5); Lymphocytes # (A) 1.2 k/uL (1.0-4.8); Lymphocytes % (A) 9 %; MCH 29.2 pg (25.0-35.0); MCHC 32.2 g/dL (31.0-37.0); MCV 90.8 fL (80.0-100.0); Mean Platelet Volume 7.7; Monocytes # (A) 0.6 k/uL (0-1.0); Monocytes % (A) 5 %; Neutrophils # (A) 12.1 k/uL (1.3-7.7); Neutrophils % (A) 85 %; Platelet Count 381 k/uL (150-450); RBC 4.28 m/uL (4.30-5.90); RDW 13.7 % (11.5-15.5); WBC 14.2 k/uL (3.8-10.6)
[2023-08-29 13:34] LABS: ALT 14 U/L (4-49); AST 21 U/L (17-59); African American GFR (CKD) >90 (>60 ml/min/1.73 sqM); Albumin 4.2 g/dL (3.5-5.0); Alkaline Phosphatase 184 U/L (38-126); Anion Gap 8 mmol/L; Blood Urea Nitrogen 17 mg/dL (9-20); Calcium 9.3 mg/dL (8.4-10.2); Carbon Dioxide 32 mmol/L (22-30); Chloride 96 mmol/L (98-107); Glucose 104 mg/dL (74-99); Non-African American GFR(CKD) >90 (>60 ml/min/1.73 sqM); Potassium 4.7 mmol/L (3.5-5.1); Sodium 136 mmol/L (137-145); Total Bilirubin 0.6 mg/dL (0.2-1.3); Total Protein 8.8 g/dL (6.3-8.2)
[2023-08-29 13:38] LABS: INR 0.9 (<1.2); Partial Thromboplastin Time 28.5 sec (22.0-30.0); Prothrombin Time 10.5 sec (10.0-12.5)
[2023-08-29] MEDS: ALBUTEROL NEBULIZED 2.5 MG/3 ML INHALATION STA (14:00)
[2023-08-29] MEDS: IPRATROPIUM 0.5 MG/2.5 ML NEBU INHALATION STA (14:00)
[2023-08-29 14:04] LABS: Amorphous Sediment,Urine Occasional /hpf; Appearance,Urine Cloudy (Clear); Bilirubin,Urine Negative (Negative); Blood,Urine Small (Negative); Color,Urine Yellow; Glucose,Urine (UA) Negative (Negative); Hyaline Casts,Urine 10 /lpf (0-2); Ketones,Urine Negative (Negative); Leukocyte Esterase,Urine Negative (Negative); Mucus,Urine Occasional /hpf; Nitrite,Urine Negative (Negative); Protein,Urine Trace (Negative); RBC,Urine 20 /hpf (0-5); Specific Gravity,Urine 1.016 (1.001-1.035); Squamous Epithelial Cell,Urine <1 /hpf (0-4); WBC,Urine <1 /hpf (0-5)
--- NOTE | 2023-08-29 14:50 | CT ---
EXAMINATION TYPE: CT chest angio for PE DATE OF EXAM: 08/29/2023 COMPARISON: HISTORY: elevated D dimer CT DLP: 233.1 mGycm CONTRAST: CT chest with contrast and 3D reconstruction with MIP imaging is performed with IV Contrast, patient injected with 100 mL of Isovue 370. Contrast-enhanced CT of the chest was performed through the course of the pulmonary arteries with carisa g and mediastinal window settings submitted. 3D reconstruction with MIP imaging was also performed. PULMONARY ARTERIES: The pulmonary arteries and their major tributaries are patent. I do not see jacky dence for sizable filling defect to suggest pulmonary embolic process. LUNGS: There is evidence of airspace consolidation patchy infiltrate left lower lobe compatible with pneumonia or aspiration pneumonia. There is bronchial wall thickening. Severe emphysematous changes a re seen bilaterally. No evidence for atelectasis. No pulmonary nodule or mass is detected. No pleu ral effusion. MEDIASTINUM: Thoracic aorta is of normal caliber,however, evaluation is limited given timing of the contrast bolus. If there is concern for thoracic aortic pathology consider VISHNU. Correlate clinicall y . The heart is not enlarged. No evidence for mediastinal mass. No mediastinal lymph nodes greater than 1cm. HILAR STRUCTURES: No evidence for mass. No hilar lymph nodes greater than 1 cm. UPPER ABDOMEN: No significant abnormality is seen. IMPRESSION: 1. No evidence for Pulmonary embolism at this time. 2. Left lower lobe pneumonia
[2023-08-29 15:02] VITALS: RESP 18
[2023-08-29] MEDS ORDERED: PNEUMONIA PROTOCOL UTILIZED 1 EACH MISC PO PRN (16:21)
[2023-08-29] MEDS: AZITHROMYCIN 500 MG in SODIUM CHLORIDE 0.9% 250 ML IVPB STA (16:51)
[2023-08-29] MEDS ORDERED: ALBUTEROL NEBULIZED 2.5 MG/3 ML INHALATION PRN (16:56)
[2023-08-29] MEDS ORDERED: bisacodyL 10 MG SUPP RECTAL PRN (16:57)
[2023-08-29] MEDS ORDERED: LORazepam 0.5 MG TAB PEG/G-TUBE PRN (16:57)
[2023-08-29] MEDS ORDERED: IPRATROPIUM-ALBUTEROL 3 ML NEB INHALATION PRN (16:57)
[2023-08-29] MEDS ORDERED: MORPHINE ORAL SOLN 10 MG/5 ML CUP PEG/G-TUBE PRN (16:57)
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
[2023-08-29] MEDS: SCOPOLAMINE 1 MG/72 HR PATCH TRANSDERM SCH (19:52)
[2023-08-29 19:54] VITALS: BP 110/74; PULSE 78; TEMP 98
[2023-08-29] MEDS ORDERED: SYMBICORT 160-4.5 MCG INHALER INHALATION SCH (20:00)
[2023-08-29] MEDS ORDERED: MIRTAZAPINE 45 MG TABLET PEG/G-TUBE SCH (21:00)
[2023-08-29] MEDS ORDERED: PHENYTOIN 50 MG CHEWABLE PEG/G-TUBE SCH (21:00)
[2023-08-30] MEDS ORDERED: SENNA LEAF EXTRACT PEG/G-TUBE SCH (09:00)
[2023-08-30] MEDS ORDERED: AZITHROMYCIN 500 MG TAB PO SCH (09:00)
[2023-08-30] MEDS ORDERED: polyethylene glycoL 3350 17 GM POWD.PACK PEG/G-TUBE SCH (09:00)
--- NOTE | 2023-08-30 17:47 | P.DS ---
Providers Date of admission: 08/29/23 16:23 Expected date of discharge: 08/30/23 Attending physician: Arnold Robb MD Primary care physician: Stated None Hospital Course: Patient left AMA. Plan - Discharge Summary New Discharge Prescriptions: No Action Nitroglycerin Sl Tabs [Nitrostat] 0.4 mg SUBLINGUAL Q5M PRN PRN Reason: Chest Pain Morphine Sulfate [Morphine Sulfate Oral Soln Concentrate] 5 mg PEG/G-TUBE Q2H PRN PRN Reason: Pain polyethylene glycoL 3350 [Miralax] 17 gm PEG/G-TUBE DAILY Magnesium Hydroxide [Milk of Magnesia Concentrate] 2,400 mg PEG/G-TUBE DAILY PRN PRN Reason: Constipation Guaifenesin/Dextromethorphan [Guaifenesin-Dm 100-10 mg/5 ml] 5 ml PEG/G-TUBE Q4H PRN PRN Reason: CONGESTION/COUGH Fluticasone Propion/Salmeterol [Fluticasone-Salmeterol 113-14] 1 puff INHALATION RT-BID Na Phos,M-B/Na Phos,Di-Ba [Fleet Adult] 133 ml RECTAL DAILY PRN PRN Reason: Constipation Benzocaine 20 % Gel [Orajel] 1 applic MM QID PRN PRN Reason: Pain Sodium Chloride 0.9% [Saline 0.9%] 500 ml IV DAILY Osmolite 1.5 [place] 474 ml PEG/G-TUBE DAILY Twocal Hn 237 ml PEG/G-TUBE BID Mirtazapine [Remeron] 45 mg PEG/G-TUBE HS Phenytoin Chew [Dilantin Chew] 150 mg PEG/G-TUBE BID Ipratropium-Albuterol Nebulize [Duoneb 0.5 mg-3 mg/3 ml Soln] 3 ml INHALATION RT-Q4H PRN PRN Reason: Shortness Of Breath Albuterol Sulfate [Albuterol Sulfate Hfa] 1 - 2 puff PO RT-Q6H PRN PRN Reason: Shortness Of Breath bisacodyL [Dulcolax] 10 mg RECTAL Q3D PRN PRN Reason: Constipation LORazepam ORAL CONC [Ativan Intensol] 0.5 mg PEG/G-TUBE Q4H PRN PRN Reason: Anxiety Simethicone 40 mg/0.6 ml Drops [Mylicon Drops] 40 mg PEG/G-TUBE QID PRN PRN Reason: GAS Senna [place] Extract 176mg/5ml 352 mg PEG/G-TUBE DAILY Discharge Medication List Mirtazapine [Remeron] 45 mg PEG/G-TUBE HS 11/12/22 [History] Phenytoin Chew [Dilantin Chew] 150 mg PEG/G-TUBE BID 04/02/23 [History] Albuterol Sulfate [Albuterol Sulfate Hfa] 1 - 2 puff PO RT-Q6H PRN 08/29/23 [History] Benzocaine 20 % Gel [Orajel] 1 applic MM QID PRN 08/29/23 [History] Fluticasone Propion/Salmeterol [Fluticasone-Salmeterol 113-14] 1 puff INHALATION RT-BID 08/29/23 [History] Guaifenesin/Dextromethorphan [Guaifenesin-Dm 100-10 mg/5 ml] 5 ml PEG/G-TUBE Q4H PRN 08/29/23 [History] Ipratropium-Albuterol Nebulize [Duoneb 0.5 mg-3 mg/3 ml Soln] 3 ml INHALATION RT-Q4H PRN 08/29/23 [History] LORazepam ORAL CONC [Ativan Intensol] 0.5 mg PEG/G-TUBE Q4H PRN 08/29/23 [History] Magnesium Hydroxide [Milk of Magnesia Concentrate] 2,400 mg PEG/G-TUBE DAILY PRN 08/29/23 [History] Morphine Sulfate [Morphine Sulfate Oral Soln Concentrate] 5 mg PEG/G-TUBE Q2H PRN 08/29/23 [History] Na Phos,M-B/Na Phos,Di-Ba [Fleet Adult] 133 ml RECTAL DAILY PRN 08/29/23 [History] Nitroglycerin Sl Tabs [Nitrostat] 0.4 mg SUBLINGUAL Q5M PRN 08/29/23 [History] Osmolite 1.5 [place] 474 ml PEG/G-TUBE DAILY 08/29/23 [History] Senna [place] Extract 176mg/5ml 352 mg PEG/G-TUBE DAILY 08/29/23 [History] Simethicone 40 mg/0.6 ml Drops [Mylicon Drops] 40 mg PEG/G-TUBE QID PRN 08/29/23 [History] Sodium Chloride 0.9% [Saline 0.9%] 500 ml IV DAILY 08/29/23 [History] Twocal Hn 237 ml PEG/G-TUBE BID 08/29/23 [History] bisacodyL [Dulcolax] 10 mg RECTAL Q3D PRN 08/29/23 [History] polyethylene glycoL 3350 [Miralax] 17 gm PEG/G-TUBE DAILY 08/29/23 [History] Follow up Appointment(s)/Referral(s): None,Stated [Primary Care Provider] - 1-2 days Discharge Disposition: LEFT AGAINST MEDICAL ADVICE
== END 2023-08-29 19:57 | disposition left against medical advice (07) ==
LOC: EC 12:21 → 6NMEDSUR 16:23
PROVIDERS: ADMIT Student in an Organized Health Care Education/Training Program; ATTEND Student in an Organized Health Care Education/Training Program
DX: J18.9 Pneumonia, unspecified organism (principal); J43.9 Emphysema, unspecified; J96.01 Acute respiratory failure with hypoxia; G51.0 Bell's palsy; F17.210 Nicotine dependence, cigarettes, uncomplicated; K59.00 Constipation, unspecified; Z53.29 Procedure and treatment not carried out because of patient's decision for other reasons; Z93.1 Gastrostomy status; Z85.118 Personal history of other malignant neoplasm of bronchus and lung
CPT/HCPCS: 96374; 99285; 51798; 36415; 94640; 93005; 85379; 80053; 83605; 83735; 84484; 85025; 85610; 85730; 81001; 71275; G0378; Q9967; J2919

== ENCOUNTER 2023-09-08 17:00 | Observation (INO) | payer OTHER ==
[2023-09-08 18:36] LABS: Basophils # (A) 0.1 k/uL (0-0.2); Basophils % (A) 0 %; Eosinophils # (A) 0.1 k/uL (0-0.7); Eosinophils % (A) 1 %; HCT 32.8 % (39.0-53.0); HGB 10.5 gm/dL (13.0-17.5); Lymphocytes # (A) 0.8 k/uL (1.0-4.8); Lymphocytes % (A) 7 %; MCH 29.7 pg (25.0-35.0); MCHC 32.1 g/dL (31.0-37.0); MCV 92.4 fL (80.0-100.0); Mean Platelet Volume 8.3; Monocytes # (A) 0.6 k/uL (0-1.0); Monocytes % (A) 5 %; Neutrophils # (A) 9.7 k/uL (1.3-7.7); Neutrophils % (A) 86 %; Platelet Count 328 k/uL (150-450); RBC 3.55 m/uL (4.30-5.90); RDW 13.3 % (11.5-15.5); WBC 11.3 k/uL (3.8-10.6)
[2023-09-08 18:51] LABS: ALT 19 U/L (4-49); AST 26 U/L (17-59); African American GFR (CKD) >90 (>60 ml/min/1.73 sqM); Albumin 3.9 g/dL (3.5-5.0); Alkaline Phosphatase 160 U/L (38-126); Anion Gap 8 mmol/L; Blood Urea Nitrogen 20 mg/dL (9-20); Calcium 9.3 mg/dL (8.4-10.2); Carbon Dioxide 28 mmol/L (22-30); Chloride 98 mmol/L (98-107); Glucose 80 mg/dL (74-99); Magnesium 2.2 mg/dL (1.6-2.3); Non-African American GFR(CKD) >90 (>60 ml/min/1.73 sqM); Potassium 4.5 mmol/L (3.5-5.1); Sodium 134 mmol/L (137-145); Total Bilirubin 0.6 mg/dL (0.2-1.3); Total Protein 7.8 g/dL (6.3-8.2)
[2023-09-08 18:59] LABS: NT-Pro-B-Type Natriuretic Pept 308 pg/mL
--- NOTE | 2023-09-08 19:24 | XR ---
EXAMINATION TYPE: XR KUB DATE OF EXAM: 09/08/2023 6:34 PM CLINICAL INDICATION:Male, 68 years old with history of ABDOMINAL PAIN; [facility] COMPARISON: None. TECHNIQUE: Supine radiographic view/s of the abdomen/pelvis obtained. FINDINGS: PEG tube terminates over the stomach. Multiple bowel loops are gaseous and mildly distended. There ap pears to be a small amount of gas and stool in the right colon, less further distally. Surgical clips right upper quadrant likely from cholecystectomy. Partially seen infiltrate in the left lung base. Please refer to chest report. Osseous structures show mild/moderate degenerative changes including the hips. No clearly acute bony abnormality. IMPRESSION: Nonspecific bowel gas pattern, may indicate ileus. Follow-up as clinically warranted.
--- NOTE | 2023-09-08 19:29 | XR ---
EXAMINATION TYPE: XR chest 2V DATE OF EXAM: 09/08/2023 6:34 PM CLINICAL INDICATION:Male, 68 years old with history of CHEST PAIN; [facility] COMPARISON: 08/02/2023 and other prior exams TECHNIQUE: XR chest 2V. Frontal and lateral views of the chest.. FINDINGS: Lines/Tubes/Devices: Tubing and other extraneous densities project over the chest. No indwelling lines are seen. Heart/mediastinum: Heart appears mildly enlarged. Partially calcified mildly tortuous aorta. Normal mediastinal silhouette. No evidence for hilar enlargement. Pulmonary vascularity: Not increased, Lungs/Pleura: Lungs appear hyperinflated with diffuse interstitial coarsening likely sequela of COPD. Asymmetric increased reticulonodular opacities in the left mid to lower lung zone concerning for inf iltrate. Changes in the right mid to lower lung zone favored to be chronic. No sizable effusion or ev idence of pneumothorax. Musculoskeletal: Osseous structures difficult to evaluate due to osteopenia and degenerative changes. No clearly acute abnormality is seen. Other findings: None. IMPRESSION: 1. Chronic changes likely related to COPD. 2. Left basilar reticulonodular infiltrate. Correlate for pneumonia. Follow-up to resolution.
[2023-09-08] MEDS: AZITHROMYCIN 500 MG TAB PO STA (20:43)
[2023-09-08] MEDS ORDERED: PNEUMONIA PROTOCOL UTILIZED 1 EACH MISC PO PRN (21:48)
[2023-09-08] MEDS ORDERED: MAGNESIUM HYDROXIDE 2,400 MG/30 ML CUP PEG/G-TUBE PRN (21:53)
[2023-09-08] MEDS ORDERED: NA PHOS,M-B/NA PHOS,DI-BA 133 ML ENEMA RECTAL PRN (21:53)
[2023-09-08] MEDS ORDERED: ALBUTEROL HFA INHALER INHALATION PRN (21:53)
[2023-09-08] MEDS ORDERED: SIMETHICONE 40 MG/0.6 ML DROPS 2,000 MG/30 ML BOTTLE PEG/G-TUBE PRN (21:53)
[2023-09-08] MEDS ORDERED: bisacodyL 10 MG SUPP RECTAL PRN (21:53)
[2023-09-08] MEDS ORDERED: LORazepam 0.5 MG TAB PEG/G-TUBE PRN (21:53)
[2023-09-08] MEDS: SODIUM CHLORIDE 0.9% 1,000 ML IV SCH (23:12)
[2023-09-09] MEDS: SYMBICORT 160-4.5 MCG INHALER INHALATION SCH (08:11)
[2023-09-09] MEDS: MORPHINE ORAL SOLN 10 MG/5 ML CUP PEG/G-TUBE PRN (09:52)
[2023-09-09] MEDS: SENNA LEAF EXTRACT SYRUP 528 MG/15 ML CUP PEG/G-TUBE SCH (09:53)
[2023-09-09] MEDS: PHENYTOIN 50 MG CHEWABLE PEG/G-TUBE SCH (09:53)
[2023-09-09] MEDS: polyethylene glycoL 3350 17 GM POWD.PACK PEG/G-TUBE SCH (09:53)
--- NOTE | 2023-09-09 10:48 | XR ---
EXAMINATION TYPE: XR chest 2V DATE OF EXAM: 09/09/2023 6:39 AM CLINICAL INDICATION:Male, 68 years old with history of pneumonia; [facility] COMPARISON: Chest radiograph from one day prior. TECHNIQUE: XR chest 2V Frontal and lateral views of the chest. FINDINGS: Lungs/Pleura: Similar posterior space opacities on emphysema changes in the left lower lobe. There is flattening of the diaphragm with increased lucency of the lungs. No evidence of pneumothorax, pleura l effusion or focal consolidation. Pulmonary vascularity: Unremarkable. Heart/mediastinum: Cardiomediastinal silhouette is unremarkable. Musculoskeletal: No acute osseous pathology. Other findings: None IMPRESSION: Extensive COPD/emphysema with superimposed airspace opacity in the left lower lobe. Findings similar to prior.
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
[2023-09-09 11:50] VITALS: BMI 13.8
[2023-09-09] MEDS: METOCLOPRAMIDE 5 MG/ML 2 ML VIAL IVP SCH (12:03)
[2023-09-09] MEDS: TAMSULOSIN 0.4 MG CAP.ER.24H PO SCH (12:06)
[2023-09-09] MEDS: IPRATROPIUM-ALBUTEROL 3 ML NEB INHALATION PRN (12:49)
[2023-09-09] MEDS: ZINC OXIDE PASTE (Z-GUARD) 1 APPLIC TOPICAL PRN (17:32)
[2023-09-09] MEDS: MIRTAZAPINE 45 MG TABLET PEG/G-TUBE SCH (20:11)
[2023-09-09] MEDS: AZITHROMYCIN 500 MG TAB PEG/G-TUBE SCH (20:11)
[2023-09-10 02:49] VITALS: TEMP 97.5
[2023-09-10 08:22] VITALS: BP 98/58; PULSE 45; RESP 15
[2023-09-10] MEDS: TAMSULOSIN 0.4 MG CAP.ER.24H PO SCH (10:26)
[2023-09-10] MEDS: ENOXAPARIN 40 MG/0.4 ML SYRINGE SQ SCH (10:28)
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
== END 2023-09-10 11:21 | disposition home or self-care (01) ==
LOC: EC 17:00 → 6NMEDSUR 21:48 → INTOOBSV 21:48 → 6NMEDSUR 22:17
PROVIDERS: ADMIT Family Medicine; ATTEND Family Medicine
DX: J69.0 Pneumonitis due to inhalation of food and vomit (principal); G51.0 Bell's palsy; F17.200 Nicotine dependence, unspecified, uncomplicated; J96.10 Chronic respiratory failure, unspecified whether with hypoxia or hypercapnia; K56.7 Ileus, unspecified; R33.9 Retention of urine, unspecified; Z93.1 Gastrostomy status; E78.5 Hyperlipidemia, unspecified
CPT/HCPCS: 96365; 36415; 94640 ×3; 94760 ×2; 83880; 80053; 83605; 83735; 84484; 85025; 87040; 71046 ×2; 74018; G0378 ×3; J0696

== ENCOUNTER 2023-09-13 08:39 | Emergency (ER) | payer OTHER ==
[2023-09-13] MEDS: ACETAMINOPHEN TAB 325 MG TAB PO STA (09:22)
[2023-09-13] MEDS: SODIUM CHLORIDE 0.9% 500 ML 500 ML IV ONE (09:22)
[2023-09-13] MEDS: MORPHINE SULFATE 2 MG/ML SYRINGE IV STA (09:22)
--- NOTE | 2023-09-13 09:31 | XR ---
EXAMINATION TYPE: XR chest 1V portable DATE OF EXAM: 09/13/2023 COMPARISON: 09/09/2023 HISTORY: Pain TECHNIQUE: Single frontal view of the chest is obtained. FINDINGS: Diffuse pulmonary fibrosis with honeycombing compatible with advanced interstitial lung di sease. There is a nodule in the right midlung. Heart size normal. Atherosclerotic change aorta. Addit ional nodular density in the right upper lobe is somewhat elliptical in shape. Underlying neoplasm is not excluded. Recommend CT chest. Emphysematous changes noted. 4 mm nodule left upper lobe. IMPRESSION: 1. Pulmonary fibrosis and COPD. 2. There is a nodular density involving the right upper lobe and right midlung recommend short-term f ollow-up CT of the chest.
--- NOTE | 2023-09-13 09:33 | XR ---
EXAMINATION TYPE: XR pelvis AP view DATE OF EXAM: 09/13/2023 COMPARISON: NONE HISTORY: Pain Findings: Exam limited due to overlying artifact and positioning. Particular limitation of the left i ntertrochanteric region. There is a lucency in this region which could be artifactual. Bilateral hype rtrophic moderate hip arthropathy. Generalized demineralization.. No acute fracture is seen. Visual ized bowel gas pattern is nonspecific. Degenerative change lower lumbar spine. IMPRESSION: 1. Limited exam with artifact overlying the left femoral neck and trochanteric region. If there is po int tenderness or difficulty with weightbearing would recommend CT scan to assess the left proximal f emur and exclude fracture.
[2023-09-13] MEDS: MORPHINE SULFATE 4 MG/ML SYRINGE IM STA ×2 (09:34→10:29)
--- NOTE | 2023-09-13 09:35 | XR ---
EXAMINATION TYPE: XR shoulder complete LT DATE OF EXAM: 09/13/2023 COMPARISON: NONE HISTORY: Pain TECHNIQUE: Three views are submitted. FINDINGS: The osseous structures are intact. There is no acute fracture or dislocation. Diffuse osteopenia. Ro tation limits assessment of the humeral head and could not exclude a fracture of the humeral neck. Di ffuse osteopenia. Visualized lung hawley are clear. IMPRESSION: 1. Essentially nondiagnostic exam due to positioning. Cannot exclude a fracture of the left humeral n chaim recommend CT scan.
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
--- NOTE | 2023-09-13 11:09 | CT ---
EXAMINATION TYPE: CT shoulder LT wo con CT DLP: 267 mGycm, Automated exposure control for dose reduction was used. DATE OF EXAM: 09/13/2023 10:55 AM COMPARISON: Left shoulder radiograph of the same date CLINICAL INDICATION:Male, 68 years old with history of fall, pain; PHH, Fall TECHNIQUE: Axial images were obtained of the left shoulder without the use of IV contrast. Additiona l coronal and sagittal reformatted images and soft tissue and bone window were obtained for review. 3 -D reconstruction was created on a separate workstation. FINDINGS: Acute comminuted fracture of the left proximal humeral neck. There is impaction identified with shortening of approximately 1.2 cm. Posterior displacement of approximately 8 mm. The surroundin g joint effusion and edema identified. No dislocation or subluxation identified. Scapula and clavicle appears intact. Left lateral neck man-made device identified. Paraseptal and centrilobular emphysematous changes iden tified within the visualized lungs. Left lower lobe consolidation with mucoid debris identified withi n the right lower lobe bronchus. IMPRESSION: 1. Acute comminuted displaced proximal left humeral neck fracture. 2. Findings suggestive of left lower lobe aspiration pneumonia. 3. Advanced COPD changes.
[2023-09-13 12:17] VITALS: BP 114/63; PULSE 79; RESP 20; TEMP 98
== END 2023-09-13 12:27 | disposition home or self-care (01) ==
LOC: EC 08:39
DX: S42.292A Other displaced fracture of upper end of left humerus, initial encounter for closed fracture (principal); J18.9 Pneumonia, unspecified organism; F17.200 Nicotine dependence, unspecified, uncomplicated; W18.30XA Fall on same level, unspecified, initial encounter
CPT/HCPCS: 93005; 72170; 73030; 71045; 73200; 99284; 96372 ×2; J2270